=== PATIENT | male | born 1945 | race Caucasian/White ===

== ENCOUNTER 2018-04-28 15:35 | Inpatient (IN) | payer OTHER, BC ==
--- NOTE | 2018-04-28 16:03 | PDOC ---
Rapid Medical Evaluation Chief Complaint: Syncope/Near Syncope Medical Evaluation: 04/28/18 16:01 I have performed a brief in-person evaluation of this patient. The patient presents with a chief complaint of: syncopal episode yestrerday Pertinent physical exam findings: pale. , alert./ lungs clear I have ordered the following: EKG,CXR, CBC, CMP, Card profile The patient will proceed to the ED for further evaluation. 04/28/18 16:03
--- NOTE | 2018-04-28 16:59 | PDOC ---
History of Present Illness - General Chief Complaint: Syncope/Near Syncope Stated Complaint: COUGHING / WEAKNESS Time Seen by Provider: 04/28/18 16:35 - History of Present Illness Initial Comments: 04/28/18 16:53 73 yo M with h/o HCV, MVP who p/w syncope. Pt. reports acute onset of lightheadedness while in shower yesterday ( 1200 PM ) while standing. Spouse at bedside to assist in report. States that patient collapsed and she caught patient before he hit the floor. Denies LOC. Reports recent sinus congestion, green productive sputum cough, with dark tinged streaks, subjective fevers, and shortness of breath. Patient denies WILBURN, vision change, palpitations, wheezing, orthopena, PND, leg swelling/pain, N/V, F,C, urinary complaints, hematuria, BPR, abdominal pain, diarrhea, constipation, lightheadedness, weakness, sensory changes. PMHx: as noted above ROS: as noted SHx: Denies Etoh, IVDA, tobacco use Allergies: NKDA Past History - Past Medical History Allergies/Adverse Reactions: Allergies Allergy/AdvReac Type Severity Reaction Status Date / Time No Known Allergies Allergy Verified 04/28/18 15:59 - Suicide/Smoking/Psychosocial Hx Smoking History: Never smoked Hx Alcohol Use: No Drug/Substance Use Hx: No Review of Systems - Review of Systems Comments:: 04/28/18 16:59 GENERAL/CONSTITUTIONAL: No fever or chills. No weakness. HEAD, EYES, EARS, NOSE AND THROAT: No change in vision. No ear pain or discharge. No sore throat. CARDIOVASCULAR: No chest pain or shortness of breath RESPIRATORY: + cough. No wheezing, or hemoptysis. GASTROINTESTINAL: No nausea, vomiting, diarrhea or constipation. GENITOURINARY: No dysuria, frequency, or change in urination. MUSCULOSKELETAL: No joint or muscle swelling or pain. No neck or back pain. SKIN: No rash NEUROLOGIC:+ Lightheadedness. No headache, vertigo, loss of consciousness, or change in strength/sensation. ENDOCRINE: No increased thirst. No abnormal weight change HEMATOLOGIC/LYMPHATIC: No anemia, easy bleeding, or history of blood clots. ALLERGIC/IMMUNOLOGIC: No hives or skin allergy. *Physical Exam - Vital Signs Last Vital Signs Temp Pulse Resp BP Pulse Ox 98.1 F 81 18 108/76 98 03/07/19 15:59 04/28/18 15:59 04/28/18 15:59 04/28/18 15:59 04/28/18 15:59 - Physical Exam Comments: 04/28/18 17:00 GENERAL: Awake, alert, and fully oriented, in no acute distress HEAD: No signs of trauma, normocephalic, atraumatic EYES: PERRLA, EOMI, sclera anicteric, conjunctiva clear ENT: Auricles normal inspection, hearing grossly normal, nares patent, oropharynx clear without exudates. Moist mucosa NECK: Normal ROM, supple, no lymphadenopathy, JVD, or masses LUNGS: No distress, speaks full sentences, clear to auscultation bilaterally HEART: Regular rate and rhythm, normal S1 and S2, no murmurs, rubs or gallops, peripheral pulses normal and equal bilaterally. ABDOMEN: Soft, nontender, normoactive bowel sounds. No guarding, no rebound. No masses. Neg CVA ttp. EXTREMITIES :Left lateral malleolar ttp, and ankle edema/ skin discoloration.Normal inspection, Normal range of motion, no edema. No clubbing or cyanosis. NEUROLOGICAL: Cranial nerves II through XII grossly intact. Normal speech, normal gait, no focal sensorimotor deficits SKIN: Warm, Dry, normal turgor, no rashes or lesions noted Moderate Sedation - Procedure Monitoring Vital Signs: Procedure Monitoring Vital Signs Temperature 98.1 F 04/28/18 15:59 Pulse Rate 81 04/28/18 15:59 Respiratory Rate 18 04/28/18 15:59 Blood Pressure 108/76 04/28/18 15:59 O2 Sat by Pulse Oximetry (%) 98 04/28/18 15:59 ED Treatment Course - LABORATORY CBC & Chemistry Diagram: 04/28/18 17:09 04/28/18 17:00 - RADIOLOGY Radiology Studies Ordered: Category Date Time Status HEAD CT WITHOUT CONTRAST [CT] Stat CT Scan 04/28/18 16:52 Ordered Medical Decision Making - Medical Decision Making 04/28/18 16:57 73 yo M with h/o HCV, MVP who p/w syncope. Vitals wnl, AF, A&OX3. Physical exam unremarkable. Denies LOC, head trauma. + Cough, sinus congestion, subjective fevers/chills. Will consider viral URI vs. PNA. Will assess for VBI/TIA, cardiac dysarrythmias, hypoglycemia, electrolyte abnml, metabolic and toxic derangements, acid-base disturbances, infection. ED Course: 04/28/18 17:15 EKG: NSR with absent JT, STD. Normal interval duration and axis. 04/28/18 17:56 CBC, CMP: Unremarkable Trop: Neg Plan to admit tele/obs 04/28/18 19:37 ANKLE RAD: Minimally displaced, non comminuted, oblique fracture at the junction of the distal fibula, and lateral malleoulus. Paged ortho. Awaiting call back. Per Dr. Larios/Ortho, posterior splint, and f/u in office 04/28/18 19:38 Patient endorsed to medicine. Dr. Nunez Admitted to medicine *DC/Admit/Observation/Transfer Diagnosis at time of Disposition: Syncope and collapse - Discharge Dispostion Condition at time of disposition: Stable Decision to Admit order: Yes - Referrals Referrals: Glenn Mason MD [Primary Care Provider] - - Patient Instructions - Post Discharge Activity
[2018-04-28 17:21] LABS: BASO % 0.3 % (0-2.0); EOS % 0.5 % (0-4.5); HEMATOCRIT 37.6 % (35.4-49); HEMOGLOBIN 13.4 GM/dL (11.7-16.9); LYMPH % 23.7 % (8-40); MCHC 35.7 g/dl (32.0-35.9); MEAN CELL VOLUME 89.5 fl (80-96); MEAN PLT VOLUME 8.4 fl (7.5-11.1); MONO % 10.8 % (3.8-10.2); NEUT % 64.7 % (42.8-82.8); PLATELET COUNT 125 K/MM3 (134-434); RDW 12.7 % (11.9-15.9); WHITE BLOOD COUNT 3.9 K/mm3 (4.0-10.0)
[2018-04-28 17:44] LABS: INR 1.09 (0.83-1.09); PROTHROMBIN TIME (PATIENT) 12.9 SEC (9.7-13.0)
[2018-04-28 17:52] LABS: ALK PHOS 52 U/L (45-117); ANION GAP 8 MMOL/L (8-16); BILIRUBIN,TOTAL 0.4 mg/dL (0.2-1); BLOOD UREA NITROGEN 21 mg/dL (7-18); CALCIUM 8.3 mg/dL (8.5-10.1); CHLORIDE 101 mmol/L (98-107); CO2 27 mmol/L (21-32); CREATININE 1.2 mg/dL (0.55-1.3); GLUCOSE,RANDOM 112 mg/dL (74-106); POTASSIUM 4.1 mmol/L (3.5-5.1); SGOT/AST 34 U/L (15-37); SGPT/ALT 40 U/L (13-61); SODIUM 136 mmol/L (136-145); TOT PROT 7.2 g/dl (6.4-8.2)
--- NOTE | 2018-04-28 18:27 | PDOC ---
Attending Attestation - Resident Resident Name: Tristian Mcbride - [facility] HPI: The patient is a 73 year old male, with a significant PMH of mitral valve prolapse and Hepatitis C, who presents to the emergency department today s/p syncopal episode yesterday. Patient reports feeling lightheaded while taking a standing shower yesterday. His notes after he stepped out of the shower, she caught him before he fell to the floor. Patient confirms left ankle contusion and LOC, but denies head contusion. He reports feeling unusual since the episode, with increased sleeping, decreased PO intake, and slight weakness. Patient endorses a recent sinus congestion, with associated productive cough with dark green streaked sputum, subjective fever, and SOB. The patient denies chest pain and headache. Denies chills, nausea, vomit, diarrhea and constipation. Denies dysuria, frequency, urgency and hematuria. Allergies: NKA Past surgical history: None reported Social history: None reported PCP: Dr. Glenn Mason 04/28/18 18:28 - Physicial Exam PE: ADULT EXAM GENERAL: Awake, alert, and fully oriented, in no acute distress HEAD: No signs of trauma EYES: PERRLA, EOMI, sclera anicteric, conjunctiva clear ENT: Auricles normal inspection, hearing grossly normal, nares patent, oropharynx clear without exudates. Moist mucosa NECK: Normal ROM, supple, no lymphadenopathy, JVD, or masses LUNGS: Breath sounds equal, clear to auscultation bilaterally. No wheezes, and no crackles HEART: Regular rate and rhythm, normal S1 and S2, no murmurs, rubs or gallops ABDOMEN: Soft, nontender, normoactive bowel sounds. No guarding, no rebound. No masses EXTREMITIES: Normal range of motion, no edema. No clubbing or cyanosis. No cords, erythema, or tenderness NEUROLOGICAL: Cranial nerves II through XII grossly intact. Normal speech, normal gait SKIN: Warm, Dry, normal turgor, no rashes or lesions noted. 04/28/18 18:28 - Medical Decision Making EXAM#: TYPE/EXAM: RESULT: [id number] RAD/CHEST PA LAT Clinical information: Cough compared to prior chest x-ray dated 03/22/2015. Impression Limited examination, as described above. There is no evidence of acute cardiopulmonary disease. Reported By: Vanita Ybarra MD 04/28/18 18:09 EXAM#: TYPE/EXAM: RESULT: [id number] RAD/ANKLE FOOT-LEFT* Status post fall X-ray of the left foot and ankle Impression Slightly displaced fracture at the junction of the lateral malleolus and distal fibula with moderate overlying soft tissue swelling Reported By: Vanita Ybarra MD 04/28/18 19:22 Documentation prepared by TIM Stanford, acting as medical billing coordinator for Claudia Lance MD. 04/28/18 19:39 <Delisa Evans - Last Filed: 04/28/18 19:39> - Resident Resident Name: Filiberto Hernandez - Medical Decision Making 04/30/18 16:54 Pt presents to the ED complaining of syncopal episode yesterday. Denies current complaints, although he does report a recent episode of flu like illness and generalized malaise that was worse yesterday. Will check labs and admit to medicine for syncope work up. <Claudia Lance - Last Filed: 04/30/18 16:59> Heart Score/ECG Review - ECG Intrepretation Rhythm: Regular Rhythm Comment:: EKG Normal sinus rhythm. Normal ECG 04/28/18 18:29 <Delisa Evans - Last Filed: 04/28/18 19:39>
--- NOTE | 2018-04-28 20:47 | HP ---
CHIEF COMPLAINT: syncope PCP: Jaziel HISTORY OF PRESENT ILLNESS: 73 yo man c/o syncope episode on 04/27 at around 1 pm. Patient exited shower and felt lightheaded and called his who caught him as he fainted and right before he hit the floor. There was no head trauma however he twisted his left ankle. Patient was unconscious for less than one minute as per his . There was no chest pain, shortness of breath, or palpitations. He complained of left ankle pain too. Pt was reluctant to come to hospital at first. Pt reported for fevers and chills prior to syncope episode but here afebrile. Pt takes a number of herbal supplements ER course was notable for: (1) ekg (2) (3) Recent Travel: no PAST MEDICAL HISTORY: HCV- treated, mitral valve proplapse, hypothryoidism? PAST SURGICAL HISTORY: none Social History: Smoking: no Alcohol: no Drugs: former IVDA Family History: mother with leukemia Allergies No Known Allergies Allergy (Verified 04/28/18 15:59) HOME MEDICATIONS: REVIEW OF SYSTEMS CONSTITUTIONAL: Absent: , diaphoresis, generalized weakness, malaise, loss of appetite, weight change present- fever, chills HEENT: Absent: rhinorrhea, nasal congestion, throat pain, throat swelling, difficulty swallowing, mouth swelling, ear pain, eye pain, visual changes CARDIOVASCULAR: Absent: chest pain, palpitations, irregular heart rate, lightheadedness, peripheral edema present- syncope RESPIRATORY: Absent: cough, shortness of breath, dyspnea with exertion, orthopnea, wheezing, stridor, hemoptysis GASTROINTESTINAL: Absent: abdominal pain, abdominal distension, nausea, vomiting, diarrhea, constipation, melena, hematochezia GENITOURINARY: Absent: dysuria, frequency, urgency, hesitancy, hematuria, flank pain, genital pain MUSCULOSKELETAL: Absent: back pain, neck pain present- myalgia, arthralgia, joint swelling- left ankle SKIN: Absent: rash, itching, pallor HEMATOLOGIC/IMMUNOLOGIC: Absent: easy bleeding, easy bruising, lymphadenopathy, frequent infections ENDOCRINE: Absent: unexplained weight gain, unexplained weight loss, heat intolerance, cold intolerance NEUROLOGIC: Absent: headache, focal weakness or paresthesias, dizziness, unsteady gait, seizure, mental status changes, bladder or bowel incontinence PSYCHIATRIC: Absent: anxiety, depression, suicidal or homicidal ideation, hallucinations. PHYSICAL EXAMINATION Vital Signs - 24 hr 04/28/18 15:59 Temperature 98.1 F Pulse Rate 81 Respiratory 18 Rate Blood Pressure 108/76 O2 Sat by Pulse 98 Oximetry (%) GENERAL: Awake, alert, and fully oriented, in no acute distress. HEAD: Normal with no signs of trauma. EYES: Pupils equal, round and reactive to light, extraocular movements intact, sclera anicteric, conjunctiva clear. No lid lag. EARS, NOSE, THROAT: Ears normal, nares patent, oropharynx clear without exudates. Moist mucous membranes. NECK: Normal range of motion, supple without lymphadenopathy, JVD, or masses. LUNGS: Breath sounds equal, clear to auscultation bilaterally. No wheezes, and no crackles. No accessory muscle use. HEART: Regular rate and rhythm, normal S1 and S2 without murmur, rub or gallop. ABDOMEN: Soft, nontender, not distended, normoactive bowel sounds, no guarding, no rebound, no masses. No hepatomegaly or splenomegaly. MUSCULOSKELETAL: Normal range of motion at all joints. No bony deformities or tenderness. No CVA tenderness. UPPER EXTREMITIES: 2+ pulses, warm, well-perfused. No cyanosis. No clubbing. No peripheral edema. LOWER EXTREMITIES:left ankle was splinted, sensation in toes preserved, foot warm to touch NEUROLOGICAL: Cranial nerves II-XII intact. Normal speech. Normal gait. PSYCHIATRIC: Cooperative. Good eye contact. Appropriate mood and affect. SKIN: Warm, dry, normal turgor, no rashes or lesions noted, normal capillary refill. Laboratory Results - last 24 hr 04/28/18 04/28/18 04/28/18 17:00 17:09 17:09 WBC 3.9 L RBC 4.20 Hgb 13.4 Hct 37.6 MCV 89.5 MCH 32.0 MCHC 35.7 RDW 12.7 Plt Count 125 L D MPV 8.4 Absolute Neuts (auto) 2.5 Neutrophils % 64.7 Lymphocytes % 23.7 Monocytes % 10.8 H Eosinophils % 0.5 Basophils % 0.3 Nucleated RBC % 0 PT with INR 12.90 INR 1.09 Sodium 136 Potassium 4.1 Chloride 101 Carbon Dioxide 27 Anion Gap 8 BUN 21 H Creatinine 1.2 Creat Clearance w eGFR 59.51 Random Glucose 112 H Calcium 8.3 L Total Bilirubin 0.4 AST 34 ALT 40 Alkaline Phosphatase 52 Creatine Kinase 312 H Troponin I < 0.02 Total Protein 7.2 Albumin 4.0 Imaging studies reviewed - left ankle xray + for displaced fracture of left lateral malleollus and distal fibula fx ekg with nsr ASSESSMENT/PLAN: #SYcnope ad collapse- likely vasovagal vs orthostatic. EKG wnl and trop were negative. Do not suspect seizures. -observation -cardiac monitoring -check orthostatics -trend troponins -echo to r/o -IV fluid hydration #Left lateral malleolus fracture, distal fibula fx - Dr. Larios called from ER and case discussed. Feeling in toes of left foot is preserved. -s/p immobilization of left foot -orthopedics consults -morphine IV prn if pain -bed rest -fall precautions #Hypothyrodism -c/w home dose levothyroxine -check tsh #DVT ppx -heparin sc Visit type - Emergency Visit Emergency Visit: Yes ED Registration Date: 04/28/18 Care time: The patient presented to the Emergency Department on the above date and was hospitalized for further evaluation of their emergent condition. - New Patient This patient is new to me today: Yes Date on this admission: 04/28/18 - Critical Care Critical Care patient: No
[2018-04-28] MEDS ORDERED: MORPHINE SULFATE 2 MG/ML VIAL IVPUSH PRN (22:49)
[2018-04-28] MEDS: SODIUM CHLORIDE 1,000 ML IV SCH (23:16)
[2018-04-28] MEDS: HEPARIN NA (PORCINE) 5,000 UNITS/ML 1ML VIAL SQ SCH (23:17)
[2018-04-29 01:05] VITALS: BMI 25.9
[2018-04-29] MEDS: LEVOTHYROXINE NA 125 MCG TABLET (FP) PO SCH (06:15)
[2018-04-29] MEDS: SODIUM CHLORIDE 1,000 ML IV SCH (06:51)
[2018-04-29 07:01] LABS: HEMOGLOBIN 13.3 GM/dL (11.7-16.9); MCH 32.1 pg (25.7-33.7); MEAN CELL VOLUME 89.2 fl (80-96); PLATELET COUNT 106 K/MM3 (134-434); RBC 4.15 M/mm3 (4.00-5.60); RDW 12.4 % (11.9-15.9)
[2018-04-29 08:10] LABS: ANION GAP 10 MMOL/L (8-16); BLOOD UREA NITROGEN 16 mg/dL (7-18); CALCIUM 8.2 mg/dL (8.5-10.1); CHLORIDE 102 mmol/L (98-107); CO2 26 mmol/L (21-32); CREATININE 0.9 mg/dL (0.55-1.3); GLUCOSE,RANDOM 99 mg/dL (74-106); POTASSIUM 4.2 mmol/L (3.5-5.1); SODIUM 139 mmol/L (136-145)
[2018-04-29] MEDS: HEPARIN NA (PORCINE) 5,000 UNITS/ML 1ML VIAL SQ SCH ×2 (09:58→22:44)
--- NOTE | 2018-04-29 11:20 | PN ---
Progress Note, Physician Chief Complaint: patient seen and examined has temp of 102 - Current Medication List Current Medications: Active Medications Acetaminophen (Tylenol -) 650 mg PO Q6H PRN PRN Reason: FEVER Heparin Sodium (Porcine) (Heparin -) 5,000 unit SQ BID [facility] Last Admin: 04/29/18 09:58 Dose: 5,000 unit Sodium Chloride (Normal Saline -) 1,000 mls @ 75 mls/hr IV ASDIR [facility] Last Admin: 04/28/18 23:16 Dose: 75 mls/hr Levothyroxine Sodium (Synthroid -) 125 mcg PO DAILY@0700 [facility] Last Admin: 04/29/18 06:15 Dose: 125 mcg Morphine Sulfate (Morphine Sulfate) 2 mg IVPUSH Q4H PRN PRN Reason: PAIN LEVEL 6-10 - Objective Vital Signs: Vital Signs Temperature 102.0 F H 04/29/18 10:55 Pulse Rate 85 04/29/18 09:57 Respiratory Rate 16 04/29/18 09:57 Blood Pressure 154/75 04/29/18 09:57 O2 Sat by Pulse Oximetry (%) 98 04/28/18 23:45 Constitutional: Yes: Calm Cardiovascular: Yes: Regular Rate and Rhythm, S1, S2 Respiratory: Yes: CTA Bilaterally Gastrointestinal: Yes: Normal Bowel Sounds, Soft Extremities: Yes: Other (left ankle cast) Neurological: Yes: Alert, Oriented Labs: CBC, BMP 04/29/18 05:30 04/29/18 05:30 INR, PTT INR 1.09 (0.83-1.09) 04/28/18 17:09 Problem List - Problems (1) Syncope and collapse Assessment/Plan: telemetry carotid doppler echo cardiology troponin b12, level neurology Code(s): R55 - SYNCOPE AND COLLAPSE (2) Fever Assessment/Plan: ordered blood cultures,UA and urine culture tylenol ID eval Code(s): R50.9 - FEVER, UNSPECIFIED
[2018-04-29] MEDS: ACETAMINOPHEN 325 MG TABLET (FP) PO PRN (11:23)
--- NOTE | 2018-04-29 12:19 | PN ---
Progress Note (short form) - Note Progress Note: PULMONARY CONSULTATION DICTATED 04/29/18 IMP SYNCOPE ? SECONDARY URI URI ? INFLUENZA MVP H/O HEP C HYPOTHYROID LEFT ANKLE FX PLAN CULTURES ABX FLU SCREEN INHALED BRONCHODILATORS ECHO CARDIOLOGY EVALUATION ORTHO EVALUATION DR GARCIA Problem List - Problems (1) Fever Code(s): R50.9 - FEVER, UNSPECIFIED (2) Syncope and collapse Code(s): R55 - SYNCOPE AND COLLAPSE (3) Hepatitis C Code(s): B19.20 - UNSPECIFIED VIRAL HEPATITIS C WITHOUT HEPATIC COMA (4) Hypothyroid Code(s): E03.9 - HYPOTHYROIDISM, UNSPECIFIED
[2018-04-29] MEDS ORDERED: ALBUTEROL SO4 2.5/IPRATROPIUM 0.5 INH SOL 3 ML VIAL.NEB. NEB PRN (12:29)
[2018-04-29 12:43] LABS: URINE APPEARANCE CLEAR; URINE BILIRUBIN NEGATIVE (<2.0 mg/dL); URINE COLOR YELLOW; URINE GLUCOSE (UA) NEGATIVE (NEGATIVE); URINE KETONE NEGATIVE (NEGATIVE); URINE LEUK ESTERASE NEGATIVE (NEGATIVE); URINE NITRITE NEGATIVE (NEGATIVE); URINE PROTEIN NEGATIVE (NEGATIVE); URINE UROBILINOGEN NEGATIVE mg/dL (0.2-1.0)
--- NOTE | 2018-04-29 13:26 | ECHO ---
Name: LILLIAN HUANG Exam:Adult Echocardiogram Study Date: 04/29/2018 10:51 AM Age: 73 yrs Reason For Study: SYNCOPE Height: 74 in Weight: 200 lb BSA: 2.2 m2 MMode/2D Measurements & Calculations LVIDd: 4.5 cm Ao root diam: 3.2 cm LVIDs: 2.9 cm LA dimension: 2.7 cm EDV(Teich): 94.2 ml LVOT diam: 2.1 cm ESV(Teich): 32.8 ml Doppler Measurements & Calculations MV E max river: 56.8 cm/sec Ao V2 max: 183.5 cm/sec MV A max river: 90.8 cm/sec Ao max P.5 mmHg MV E/A: 0.63 Ao V2 mean: 130.9 cm/sec Ao mean P.8 mmHg Ao V2 VTI: 32.3 cm GALA(I,D): 3.1 cm2 GALA(V,D): 3.1 cm2 LV V1 max P.4 mmHg SV(LVOT): 100.4 ml LV V1 mean P.6 mmHg LV V1 max: 169.1 cm/sec LV V1 mean: 107.0 cm/sec LV V1 VTI: 29.8 cm Med [place]: 8.3 cm/sec Med E/e': 6.9 Lat [place]: 10.3 cm/sec Lat E/e': 5.5 Procedure The study was technically difficult with many images being suboptimal in quality. Left Ventricle The left ventricle is hyperdynamic. Ejection Fraction = 65-70%. The transmitral spectral Doppler flow pattern is suggestive of impaired LV relaxation. Right Ventricle The right ventricle is not well visualized. Atria Normal left and right atrial size and function. Mitral Valve The mitral valve is normal in structure and function. There is no mitral valve stenosis. There is mil d mitral regurgitation. Tricuspid Valve The tricuspid valve is normal in structure and function. There is mild tricuspid regurgitation. Aortic Valve The aortic valve opens well. No hemodynamically significant valvular aortic stenosis. No aortic regur gitation is present. Pulmonic Valve The pulmonic valve is not well seen, but is grossly normal. There is no pulmonic valvular stenosis. T here is no pulmonic valvular regurgitation. Great Vessels The aortic root is normal size. Pericardium/Pleura Due to the poor quality of the echocardiogram, a pericardial effusion cannot be excluded. Interpretation Summary The left ventricle is hyperdynamic. Ejection Fraction = 65-70%. The transmitral spectral Doppler flow pattern is suggestive of impaired LV relaxation. The right ventricle is not well visualized. There is mild mitral regurgitation. There is mild tricuspid regurgitation. Due to the poor quality of the echocardiogram, a pericardial effusion cannot be excluded. MD Burk *Jan 04/29/2018 01:25 PM
[2018-04-29] MEDS: OSELTAMIVIR PHOSPHATE 75 MG CAPSULE PO SCH ×2 (13:27→22:44)
[2018-04-29 13:44] LABS: CHOLESTEROL 139 mg/dL (50-200); HDL CHOLESTEROL 52 mg/dL (40-60); TRIGLYCERIDES 87 mg/dL (0-150)
--- NOTE | 2018-04-29 14:02 | CONS ---
PULMONARY CONSULTATION DATE OF CONSULTATION: 04/29/2018 REFERRING PHYSICIAN: Dr. Mayo HISTORY OF PRESENT ILLNESS: The patient is a 73-year-old white male with a past medical of hepatitis C treated in , hypothyroidism, mitral valve prolapse, admitted to [facility] on April 28, status post syncopal episode. The patient states that since last Wednesday, he started developing low-grade temps of 99 to 100 over the course of the week. He felt weakness, and cough productive of yellowish sputum. He denied any chest pain, nausea, vomiting or diaphoresis. He states that he has been feeling generalized arthralgias and weakness. On the day prior to admission, when he exited the shower, he felt lightheaded; he fainted and lost consciousness for less than a minute. He denied any nausea, vomiting or diaphoresis prior to this. There was no chest pain, no shortness of breath prior to event. He also complained of left ankle pain. Initially, he did not go to the hospital until the following day when he presented to the ER. In the ER, he was noted to have a left malleolar fracture. He was transferred to telemetry unit for further monitoring. Patient's course of hospitalization was noted to have spiked a fever earlier today of 102. He denies any history of recent travel. There is no history of occupational exposure to chemicals or fumes. He states that he received the flu shot. PAST MEDICAL HISTORY: Again, includes hypothyroidism, history of hepatitis C. SOCIAL HISTORY: Nonsmoker. No occupational exposures. REVIEW OF SYSTEMS: Positive cough. Positive chest congestion. Positive fever. No chills. No hemoptysis. Positive generalized arthralgias and weakness. Positive syncopal episode. Positive left ankle pain. CURRENT MEDICATIONS: Include heparin subcutaneous, morphine, and Synthroid. PHYSICAL EXAMINATION: General: The patient is a well-developed, well-nourished male, awake, alert. He is in no acute distress. Vital Signs: His temp is 102, blood pressure 154/75, respiratory rate is 16, O2 saturation 98% on room air. HEENT: Exam is normocephalic, atraumatic. Neck: Supple. Heart: Regular S1 and S2. Chest: A few scattered bilateral rhonchi, left greater than right. Abdomen: Soft. Bowel sounds are positive. Extremities: no edema left lower extremity soft cast. LABORATORY DATA: WBC is 4, hemoglobin 13.3, hematocrit 37, platelet count of 106,000. INR is 1.09. BUN 16, creatinine 0.9. IMAGING: Chest x-ray: No infiltrates and no effusions. Ankle x-ray reveals a slight displaced fracture at the junction of the lateral malleolus and distal fibula, moderate overlying soft tissue swelling. IMPRESSION: 1. Syncopal episode, etiology to be determined. Likely secondary to an upper respiratory infection, possible viral syndrome, possible influenza. 2. Rule out possible cardiac. 3. History of mitral valve prolapse. 4. History of hepatitis C. 5. Hypothyroidism. 6. Left ankle fracture, status post mechanical fall. PLAN: Cultures. Antibiotics. Flu screen. Obtain echo. Cardiology evaluation. Orthopedics consultation. Inhaled bronchodilators. LILLIAN GARCIA M.D. [id number] MTDD
--- NOTE | 2018-04-29 14:25 | EKG ---
Test Reason : Blood Pressure : / mmHG Vent. Rate : 064 BPM Atrial Rate : 064 BPM P-R Int : 194 ms QRS Dur : 092 ms QT Int : 404 ms P-R-T Axes : 054 006 043 degrees QTc Int : 416 ms NORMAL SINUS RHYTHM EARLY REPOLARIZATION WHEN COMPARED WITH ECG OF 22-MAR-2015 10:31, NO SIGNIFICANT CHANGE WAS FOUND Confirmed by ROLANDO BANUELOS MD ([id number]) on 04/29/2018 2:25:37 PM Referred By: Confirmed By:ROLANDO BANUELOS MD
--- NOTE | 2018-04-29 14:34 | PN ---
Progress Note (short form) - Note Progress Note: Microbiology 04/29/18 12:05 Urine For Antigen Detection Legionella Antigen - Final 04/29/18 12:05 Urine For Antigen Detection Streptococcus pneumoniae Antigen (M - Final started on rocephin ct chest ordered ID aware on antolin flu awaiting flu swab Problem List - Problems (1) Syncope and collapse Code(s): R55 - SYNCOPE AND COLLAPSE (2) Fever Code(s): R50.9 - FEVER, UNSPECIFIED
[2018-04-29] MEDS ORDERED: cefTRIAXone SODIUM 1 GM VIAL ONE (15:31)
[2018-04-29] MEDS ORDERED: DEXTROSE 5%-WATER - 50 ML IVPB ONE (15:32)
[2018-04-29] MEDS: CEFTRIAXONE 1 GM in DEXTROSE 5%-WATER - 50 ML IVPB SCH (15:33)
--- NOTE | 2018-04-29 15:44 | CON.CARD ---
Consult Consult Specialty:: Cardiology Reason for Consultation:: Syncope - History of Present Illness Chief Complaint: Syncope and fevers History of Present Illness: This is a 73 year old male with a PMH of treated HCV and mitral valve prolapse diagnosed years ago. He was experiencing subjective fevers for several days associated with sinus congestion, and a productive cough of green sputum. About 1 pm on 04/27/18 he was taking a shower and felt light headed, called his , and has LOC where his helped him to the floor and avoid hitting his head. EKG NSR with normal intervals, normal axis, and NSSTTW changes. Echocardiogram 04/29/18 Normal LV function, EF 65 - 70%, mild MR, Mild TR. Troponin negative Flu negative - Alcohol/Substance Use Hx Alcohol Use: No - Smoking History Smoking history: Never smoked Home Medications - Allergies Allergies/Adverse Reactions: Allergies Allergy/AdvReac Type Severity Reaction Status Date / Time No Known Allergies Allergy Verified 04/28/18 15:59 - Home Medications Home Medications: Ambulatory Orders Levothyroxine [Synthroid -] 125 mcg PO DAILY 04/28/18 Vital Signs: Vital Signs Temperature 99.5 F 04/29/18 15:32 Pulse Rate 71 04/29/18 15:32 Respiratory Rate 18 04/29/18 15:32 Blood Pressure 103/56 L 04/29/18 15:32 O2 Sat by Pulse Oximetry (%) 98 04/29/18 07:00 Constitutional: Yes: Well Nourished Eyes: Yes: WNL HENT: Yes: WNL Neck: Yes: WNL Respiratory: Yes: CTA Bilaterally Gastrointestinal: Yes: Soft Cardiovascular: Yes: Regular Rate and Rhythm (NL S1S2, no MRHG) Extremities: Yes: WNL Neurological: Yes: Alert, Oriented - Other Data Labs, Other Data: CBC, BMP 04/29/18 05:30 04/29/18 05:30 INR, PTT INR 1.09 (0.83-1.09) 04/28/18 17:09 Troponin, BNP 04/28/18 04/28/18 04/29/18 17:00 22:00 11:55 Troponin I < 0.02 < 0.02 < 0.02 Troponin, BNP 04/28/18 04/28/18 04/29/18 17:00 22:00 11:55 Troponin I < 0.02 < 0.02 < 0.02 Assessment/Plan 73 year old male with a PMH of treated HCV and mitral valve prolapse diagnosed years ago. He was experiencing subjective fevers for several days associated with sinus congestion, and a productive cough of green sputum. About 1 pm on 04/27 he was taking a shower and felt light headed, called his , and has LOC where his helped him to the floor and avoid hitting his head. EKG NSR with normal intervals, normal axis, and NSSTTW changes. Echocardiogram 04/29/18 Normal LV function, EF 65 - 70%, mild MR, Mild TR. Troponin negative Flu negative Syncope secondary to a febrile illness Keep well hydrated No further inpatient cardiac testing required Call prn
[2018-04-29] MEDS ORDERED: PT OWN MED DRAWER 7, Y5N ONE (22:34)
--- NOTE | 2018-04-29 22:40 | CONS ---
DATE OF CONSULTATION: DATE OF DICTATION: 04/29/2018 INFECTIOUS DISEASE CONSULTATION HISTORY OF PRESENT ILLNESS: The patient is a 73-year-old male evaluated for pneumonia. The patient reports being well until the day of admission. He had a syncopal episode while showering. He lost consciousness briefly without sustaining head trauma. He did however twist his ankle, resulting in a fracture of his left distal tibia. He was admitted to the hospital where chest x-ray showed no acute infiltrate. Patient states that he had not been feeling well since April 24. 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 He developed a cough productive of yellowish sputum. He was evaluated at [facility] where he was admitted with suspected respiratory tract illness. An influenza swab was performed and was negative. He was started on Tamiflu. Pneumococcal antigen now reported positive. He continues to have cough productive of yellowish sputum. He denies any hemoptysis, no complaints of chest pain or dyspnea. He has been febrile on admission. He denies any ill contacts, however does volunteer at a nursing facility. He is a nonsmoker. No recent travel, lives at home with his who is not ill. No recent hospitalizations. 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 Mitral valve prolapse. Hypothyroidism. ALLERGIES: No known allergies. SOCIAL HISTORY: Lives at home with his significant other. Former injection drug user, reports testing HIV negative in the past, however he is agreeable to retesting. No active tobacco, alcohol, or illicit drug use. SYSTEMS REVIEW: Neurologic: As per HPI. Cardiac: Negative for chest pain or palpitations. Respiratory: As per HPI. Gastrointestinal: Negative vomiting or diarrhea. Genitourinary: Negative for urinary tract infection. LABORATORY DATA: White count 3.9, 64 neutrophils, 23 lymphocytes, 10 monocytes. Hematocrit 37.6, platelets 125. PHYSICAL EXAMINATION: General: On exam, he is awake and alert, he is not acutely toxic appearing, in no acute distress. Vital signs: T-max 102, blood pressure 154/72, pulse 85 regular, respirations 16 per minute. HEENT: Sclerae anicteric. Cardiovascular: Heart sounds S1, S2. Lungs: Crepitations left base. Abdomen: Soft, no tenderness elicited. No mass, rebound, or rigidity. Extremities: Negative for edema. IMPRESSION: 1. Probable pneumococcal pneumonia. 2. Rule out sepsis secondary to pneumonia . 3. Rule out recent viral respiratory tract infection. Clinical presentation along with leukopenia, monocytosis, and thrombocytopenia suggestive of viral illness; however, pneumococcal antigen in the urine is positive. Await culture results. Continue ceftriaxone for treatment of presumed pneumococcal pneumonia. Will continue Tamiflu despite negative influenza swab. Obtain CAT scan of the chest, sputum culture, case discussed with patient's present at the time of the examination. Thank you for the kind referral. ROLANDO WEBBER M.D. [id number]
[2018-04-30] MEDS: LEVOTHYROXINE NA 125 MCG TABLET (FP) PO SCH (07:37)
[2018-04-30] MEDS ORDERED: cefTRIAXone SODIUM 1 GM VIAL ONE (09:17)
[2018-04-30] MEDS ORDERED: DEXTROSE 5%-WATER - 50 ML IVPB ONE (09:17)
--- NOTE | 2018-04-30 09:54 | PN ---
Progress Note (short form) - Note Progress Note: X-rays reviewed. Pt was in CT scan when I came to see him. Spoke with his . Fracture appears nondisplaced at this time. Pt can start PT when medically clear and start NWB with walker. No need for surgery at this time. Will come by tomorrow for full exam.
--- NOTE | 2018-04-30 09:57 | PN ---
Progress Note, Physician History of Present Illness: pulmonary alert,no distress,+ cough, chets ct + derian lower infiltrates/atelectasis. pneumococcal antigen +,started on ceftriaxone by ID - Current Medication List Current Medications: Active Medications Acetaminophen (Tylenol -) 650 mg PO Q6H PRN PRN Reason: FEVER Last Admin: 04/29/18 11:23 Dose: 650 mg Albuterol/Ipratropium (Duoneb -) 1 amp NEB Q4H PRN PRN Reason: SHORTNESS OF BREATH Heparin Sodium (Porcine) (Heparin -) 5,000 unit SQ BID [facility] Last Admin: 04/29/18 22:44 Dose: 5,000 unit Sodium Chloride (Normal Saline -) 1,000 mls @ 75 mls/hr IV ASDIR [facility] Last Admin: 04/29/18 06:51 Dose: 75 mls/hr Ceftriaxone Sodium 1 gm/ (Dextrose) 50 mls @ 100 mls/hr IVPB DAILY [facility]; Protocol Last Admin: 04/29/18 15:33 Dose: 100 mls/hr Levothyroxine Sodium (Synthroid -) 125 mcg PO DAILY@0700 [facility] Last Admin: 04/30/18 07:37 Dose: Not Given Morphine Sulfate (Morphine Sulfate) 2 mg IVPUSH Q4H PRN PRN Reason: PAIN LEVEL 6-10 Oseltamivir Phosphate (Tamiflu -) 75 mg PO BID [facility] Stop: 05/04/18 12:44 Last Admin: 04/29/18 22:44 Dose: 75 mg - Objective Vital Signs: Vital Signs Temperature 97.9 F 04/30/18 05:18 Pulse Rate 64 04/30/18 05:18 Respiratory Rate 16 04/30/18 08:10 Blood Pressure 117/58 L 04/30/18 05:18 O2 Sat by Pulse Oximetry (%) 98 04/30/18 08:10 Constitutional: Yes: Well Nourished, Calm Eyes: Yes: WNL HENT: Yes: WNL Neck: Yes: WNL Cardiovascular: Yes: Regular Rate and Rhythm, S1, S2 Respiratory: Yes: Rhonchi (BILATERAL RHONCHI) Gastrointestinal: Yes: Normal Bowel Sounds, Soft Extremities: Yes: Other (LEFT LEG IN SOFT CAST) Edema: No Labs: CBC, BMP - ....Imaging Cat Scan: Report Reviewed, Image Reviewed Problem List - Problems (1) Fever Code(s): R50.9 - FEVER, UNSPECIFIED (2) Syncope and collapse Code(s): R55 - SYNCOPE AND COLLAPSE (3) Hepatitis C Code(s): B19.20 - UNSPECIFIED VIRAL HEPATITIS C WITHOUT HEPATIC COMA (4) Hypothyroid Code(s): E03.9 - HYPOTHYROIDISM, UNSPECIFIED Assessment/Plan IMP SYNCOPE LIKELY SECONDARY TO PNEUMONIA BILATERAL PNEUMONIA MVP H/O HEP C HYPOTHYROID LEFT ANKLE FX PLAN O2 NEEDED ABX PER ID INHALED BRONCHODILATORS ORTHO F/U DR GARCIA Problem List - Problems (1) Fever Code(s): R50.9 - FEVER, UNSPECIFIED (2) Syncope and collapse Code(s): R55 - SYNCOPE AND COLLAPSE (3) Hepatitis C Code(s): B19.20 - UNSPECIFIED VIRAL HEPATITIS C WITHOUT HEPATIC COMA (4) Hypothyroid Code(s): E03.9 - HYPOTHYROIDISM, UNSPECIFIED
[2018-04-30] MEDS ORDERED: ALBUTEROL SO4 0.083% IH SOL 2.5 MG/3 ML VIAL.NEB. NEB PRN (09:58)
[2018-04-30] MEDS: CEFTRIAXONE 1 GM in DEXTROSE 5%-WATER - 50 ML IVPB SCH (10:34)
[2018-04-30] MEDS: HEPARIN NA (PORCINE) 5,000 UNITS/ML 1ML VIAL SQ SCH ×2 (10:35→21:09)
[2018-04-30] MEDS: OSELTAMIVIR PHOSPHATE 75 MG CAPSULE PO SCH ×2 (10:35→21:16)
--- NOTE | 2018-04-30 10:39 | CONSULT ---
Consult - text type - Consultation Consultation Note: HISTORY OF PRESENT ILLNESS: Asked to eval this 73M admitted after syncopal episode on 04/27. Patient exited shower and felt lightheaded and called his who caught him as he fainted and right before he hit the floor. There was no head trauma however he twisted his left ankle. Patient was unconscious for less than one minute as per his . Xray showed left ankle fracture. Patient reports minimal ankle pain, even with standing. PAST MEDICAL HISTORY: HCV- treated, mitral valve proplapse, hypothryoidism PAST SURGICAL HISTORY: none Social History: Smoking: no Alcohol: no Drugs: former IVDA Family History: mother with leukemia Allergies No Known Allergies Allergy PE: aOX3, NAD, Walking in splint follows commands without difficulty, breathing comfortably b/l ue from all joints without pain left ankle exam, mild lateral fibula tenderness, no medial sided tenderness, Achilles intact no skin lesions B/L hip ROM without pain Motor intact b/l LE, SLR exam negative, DP 2+ XRAYS: Left fibula fx, oblique, Garcia B, nodisplaced ankle mortise. IMP: Minimally displaced left fibula fracture with anatomic ankle mortise, no medial tenderness and minimal discomfort with PWB -discussed options with patient including cast/nwb versus very PWB in camboot - with camboot, there would be slightly higher risk of fracture displacement, possibly necessitating fixation in the next 1-3 weeks. -patient would prefer camboot - I think very reasonable given xrays and exam -TTWB with crutches and camboot - PT eval ordered. -Long CAM Walker boot ordered. -f/u in office for xray in 1 week as outpatient
--- NOTE | 2018-04-30 11:22 | PN ---
Progress Note, Physician - Current Medication List Current Medications: Active Medications Acetaminophen (Tylenol -) 650 mg PO Q6H PRN PRN Reason: FEVER Last Admin: 04/29/18 11:23 Dose: 650 mg Albuterol Sulfate (Ventolin 0.083% Nebulizer Soln -) 1 amp NEB Q4H PRN PRN Reason: SHORT OF BREATH/WHEEZING Albuterol/Ipratropium (Duoneb -) 1 amp NEB RQID [facility] Heparin Sodium (Porcine) (Heparin -) 5,000 unit SQ BID [facility] Last Admin: 04/30/18 10:35 Dose: 5,000 unit Sodium Chloride (Normal Saline -) 1,000 mls @ 75 mls/hr IV ASDIR [facility] Last Admin: 04/29/18 06:51 Dose: 75 mls/hr Ceftriaxone Sodium 1 gm/ (Dextrose) 50 mls @ 100 mls/hr IVPB DAILY [facility]; Protocol Last Admin: 04/30/18 10:34 Dose: 100 mls/hr Levothyroxine Sodium (Synthroid -) 125 mcg PO DAILY@0700 [facility] Last Admin: 04/30/18 07:37 Dose: Not Given Morphine Sulfate (Morphine Sulfate) 2 mg IVPUSH Q4H PRN PRN Reason: PAIN LEVEL 6-10 Oseltamivir Phosphate (Tamiflu -) 75 mg PO BID [facility] Stop: 05/04/18 12:44 Last Admin: 04/30/18 10:35 Dose: 75 mg - Objective Vital Signs: Vital Signs Temperature 98.6 F 04/30/18 10:33 Pulse Rate 64 04/30/18 10:33 Respiratory Rate 18 04/30/18 10:33 Blood Pressure 123/73 04/30/18 10:33 O2 Sat by Pulse Oximetry (%) 98 04/30/18 08:10 Cardiovascular: Yes: S1, S2 Respiratory: Yes: Diminished, Rhonchi Gastrointestinal: Yes: Normal Bowel Sounds, Soft Labs: CBC, BMP 04/29/18 05:30 04/29/18 05:30 INR, PTT INR 1.09 (0.83-1.09) 04/28/18 17:09 Problem List - Problems (1) Pneumonia due to Streptococcus pneumoniae Assessment/Plan: -IV ABX -ID AND PULM ON BOARD -FOLLOW UP CXR Code(s): J13 - PNEUMONIA DUE TO STREPTOCOCCUS PNEUMONIAE (2) Ankle fracture Assessment/Plan: ORTHO CONSULT NOTED BOOT PT Code(s): S82.899A - OTH FRACTURE OF UNSP LOWER LEG, INIT FOR CLOS FX (3) Syncope and collapse Assessment/Plan: MAY HAVE JENA DUE TO PNEUMONIA TELE CARIO Code(s): R55 - SYNCOPE AND COLLAPSE
[2018-04-30] MEDS: ALBUTEROL SO4 2.5/IPRATROPIUM 0.5 INH SOL 3 ML VIAL.NEB. NEB SCH ×3 (12:17→20:47)
--- NOTE | 2018-04-30 13:29 | PN ---
Progress Note, Physician History of Present Illness: TEMP ELEVATION PAST 24H REPORTS COUGH, YELLOW SP NO C/O CHEST PAIN/ DYSPNEA CT SHOWS BIBASILAR INFILTRATES C/S PENDING - Current Medication List Current Medications: Active Medications Acetaminophen (Tylenol -) 650 mg PO Q6H PRN PRN Reason: FEVER Last Admin: 04/29/18 11:23 Dose: 650 mg Albuterol Sulfate (Ventolin 0.083% Nebulizer Soln -) 1 amp NEB Q4H PRN PRN Reason: SHORT OF BREATH/WHEEZING Albuterol/Ipratropium (Duoneb -) 1 amp NEB RQID [facility] Last Admin: 04/30/18 12:17 Dose: 1 amp Heparin Sodium (Porcine) (Heparin -) 5,000 unit SQ BID [facility] Last Admin: 04/30/18 10:35 Dose: 5,000 unit Ceftriaxone Sodium 1 gm/ (Dextrose) 50 mls @ 100 mls/hr IVPB DAILY [facility]; Protocol Last Admin: 04/30/18 10:34 Dose: 100 mls/hr Levothyroxine Sodium (Synthroid -) 125 mcg PO DAILY@0700 [facility] Last Admin: 04/30/18 07:37 Dose: Not Given Morphine Sulfate (Morphine Sulfate) 2 mg IVPUSH Q4H PRN PRN Reason: PAIN LEVEL 6-10 Oseltamivir Phosphate (Tamiflu -) 75 mg PO BID [facility] Stop: 05/04/18 12:44 Last Admin: 04/30/18 10:35 Dose: 75 mg - Objective Vital Signs: Vital Signs Temperature 99.4 F 04/30/18 13:12 Pulse Rate 73 04/30/18 13:12 Respiratory Rate 16 04/30/18 13:12 Blood Pressure 116/63 04/30/18 13:12 O2 Sat by Pulse Oximetry (%) 98 04/30/18 08:10 Constitutional: Yes: No Distress Eyes: Yes: Conjunctiva Clear Cardiovascular: Yes: Regular Rate and Rhythm, S1, S2 Respiratory: Yes: Other (+ CREPITATIONS, BASES BILATERALLY) Gastrointestinal: Yes: Normal Bowel Sounds, Soft. No: Tenderness Extremities: Yes: Other (L LE SPLINTED) Labs: CBC, BMP 04/29/18 05:30 04/29/18 05:30 INR, PTT INR 1.09 (0.83-1.09) 04/28/18 17:09 Assessment/Plan BIBASILAR INFILTRATES + PNEUMOCOCCAL AG L ANKLE FRACTURE CONTINUE CEFTRIAXONE
[2018-04-30] MEDS: ACETAMINOPHEN 325 MG TABLET (FP) PO PRN (13:44)
[2018-04-30 14:28] LABS: BASO % 0.2 % (0-2.0); EOS % 0.2 % (0-4.5); HEMATOCRIT 34.8 % (35.4-49); HEMOGLOBIN 12.5 GM/dL (11.7-16.9); LYMPH % 13.4 % (8-40); MCH 32.2 pg (25.7-33.7); MEAN CELL VOLUME 89.5 fl (80-96); MEAN PLT VOLUME 8.3 fl (7.5-11.1); MONO % 5.3 % (3.8-10.2); NEUT % 80.9 % (42.8-82.8); PLATELET COUNT 132 K/MM3 (134-434); RBC 3.89 M/mm3 (4.00-5.60); RDW 12.5 % (11.9-15.9); WHITE BLOOD COUNT 6.1 K/mm3 (4.0-10.0)
[2018-05-01] MEDS: LEVOTHYROXINE NA 125 MCG TABLET (FP) PO SCH (06:43)
[2018-05-01 07:25] LABS: BASO % 0.4 % (0-2.0); EOS % 0.9 % (0-4.5); HEMATOCRIT 35.3 % (35.4-49); HEMOGLOBIN 12.7 GM/dL (11.7-16.9); LYMPH % 19.7 % (8-40); MCH 32.1 pg (25.7-33.7); MEAN CELL VOLUME 89.3 fl (80-96); MEAN PLT VOLUME 8.7 fl (7.5-11.1); MONO % 5.2 % (3.8-10.2); NEUT % 73.8 % (42.8-82.8); PLATELET COUNT 138 K/MM3 (134-434); RBC 3.95 M/mm3 (4.00-5.60); RDW 12.4 % (11.9-15.9); WHITE BLOOD COUNT 5.5 K/mm3 (4.0-10.0)
[2018-05-01 07:31] LABS: ALBUMIN 3.4 g/dl (3.4-5.0); ALK PHOS 49 U/L (45-117); ANION GAP 6 MMOL/L (8-16); BILIRUBIN,TOTAL 0.5 mg/dL (0.2-1); BLOOD UREA NITROGEN 14 mg/dL (7-18); CHLORIDE 105 mmol/L (98-107); CO2 27 mmol/L (21-32); CREATININE 0.9 mg/dL (0.55-1.3); GLUCOSE,RANDOM 91 mg/dL (74-106); SGOT/AST 17 U/L (15-37); SGPT/ALT 41 U/L (13-61); SODIUM 138 mmol/L (136-145); TOT PROT 6.8 g/dl (6.4-8.2)
[2018-05-01] MEDS: ALBUTEROL SO4 2.5/IPRATROPIUM 0.5 INH SOL 3 ML VIAL.NEB. NEB SCH ×4 (08:15→19:47)
[2018-05-01] MEDS ORDERED: DEXTROSE 5%-WATER - 50 ML IVPB ONE (09:07)
[2018-05-01] MEDS ORDERED: cefTRIAXone SODIUM 1 GM VIAL ONE (09:07)
[2018-05-01] MEDS: HEPARIN NA (PORCINE) 5,000 UNITS/ML 1ML VIAL SQ SCH ×2 (10:14→21:53)
[2018-05-01] MEDS: CEFTRIAXONE 1 GM in DEXTROSE 5%-WATER - 50 ML IVPB SCH (10:14)
[2018-05-01] MEDS: OSELTAMIVIR PHOSPHATE 75 MG CAPSULE PO SCH ×2 (10:15→21:53)
--- NOTE | 2018-05-01 10:48 | PN ---
Progress Note, Physician History of Present Illness: PULMONARY ALERT,FEELING BETTER,LESS COUGH - Current Medication List Current Medications: Active Medications Acetaminophen (Tylenol -) 650 mg PO Q6H PRN PRN Reason: FEVER Last Admin: 04/30/18 13:44 Dose: 650 mg Albuterol Sulfate (Ventolin 0.083% Nebulizer Soln -) 1 amp NEB Q4H PRN PRN Reason: SHORT OF BREATH/WHEEZING Albuterol/Ipratropium (Duoneb -) 1 amp NEB RQID [facility] Last Admin: 05/01/18 08:15 Dose: 1 amp Heparin Sodium (Porcine) (Heparin -) 5,000 unit SQ BID [facility] Last Admin: 05/01/18 10:14 Dose: 5,000 unit Ceftriaxone Sodium 1 gm/ (Dextrose) 50 mls @ 100 mls/hr IVPB DAILY [facility]; Protocol Last Admin: 05/01/18 10:14 Dose: 100 mls/hr Levothyroxine Sodium (Synthroid -) 125 mcg PO DAILY@0700 [facility] Last Admin: 05/01/18 06:43 Dose: 125 mcg Morphine Sulfate (Morphine Sulfate) 2 mg IVPUSH Q4H PRN PRN Reason: PAIN LEVEL 6-10 Oseltamivir Phosphate (Tamiflu -) 75 mg PO BID [facility] Stop: 05/04/18 12:44 Last Admin: 05/01/18 10:15 Dose: 75 mg - Objective Vital Signs: Vital Signs Temperature 98.2 F 05/01/18 10:12 Pulse Rate 69 05/01/18 10:12 Respiratory Rate 20 05/01/18 10:12 Blood Pressure 120/66 05/01/18 10:12 O2 Sat by Pulse Oximetry (%) 96 05/01/18 08:18 Constitutional: Yes: Well Nourished, Calm Eyes: Yes: WNL HENT: Yes: WNL Neck: Yes: WNL Cardiovascular: Yes: Regular Rate and Rhythm, S1, S2 Respiratory: Yes: Rhonchi (BILATERAL RHONCHI) Gastrointestinal: Yes: Normal Bowel Sounds, Soft Extremities: Yes: Other (SOFT CAST LEFT ANKLE) Edema: No Labs: CBC, BMP 05/01/18 05:30 05/01/18 05:30 INR, PTT INR 1.09 (0.83-1.09) 04/28/18 17:09 Problem List - Problems (1) Fever Code(s): R50.9 - FEVER, UNSPECIFIED (2) Syncope and collapse Code(s): R55 - SYNCOPE AND COLLAPSE (3) Hepatitis C Code(s): B19.20 - UNSPECIFIED VIRAL HEPATITIS C WITHOUT HEPATIC COMA (4) Hypothyroid Code(s): E03.9 - HYPOTHYROIDISM, UNSPECIFIED Assessment/Plan IMP SYNCOPE LIKELY SECONDARY TO PNEUMONIA BILATERAL PNEUMONIA PNEUMOCOCCAL MVP H/O HEP C HYPOTHYROID LEFT ANKLE FX PLAN O2 NEEDED ABX PER ID INHALED BRONCHODILATORS MEDROL X 24HRS DR GARCIA Problem List - Problems (1) Fever Code(s): R50.9 - FEVER, UNSPECIFIED (2) Syncope and collapse Code(s): R55 - SYNCOPE AND COLLAPSE (3) Hepatitis C Code(s): B19.20 - UNSPECIFIED VIRAL HEPATITIS C WITHOUT HEPATIC COMA (4) Hypothyroid Code(s): E03.9 - HYPOTHYROIDISM, UNSPECIFIED
--- NOTE | 2018-05-01 12:19 | PN ---
Progress Note, Physician - Current Medication List Current Medications: Active Medications Acetaminophen (Tylenol -) 650 mg PO Q6H PRN PRN Reason: FEVER Last Admin: 04/30/18 13:44 Dose: 650 mg Albuterol Sulfate (Ventolin 0.083% Nebulizer Soln -) 1 amp NEB Q4H PRN PRN Reason: SHORT OF BREATH/WHEEZING Albuterol/Ipratropium (Duoneb -) 1 amp NEB RQID [facility] Last Admin: 05/01/18 11:57 Dose: 1 amp Heparin Sodium (Porcine) (Heparin -) 5,000 unit SQ BID [facility] Last Admin: 05/01/18 10:14 Dose: 5,000 unit Ceftriaxone Sodium 1 gm/ (Dextrose) 50 mls @ 100 mls/hr IVPB DAILY [facility]; Protocol Last Admin: 05/01/18 10:14 Dose: 100 mls/hr Levothyroxine Sodium (Synthroid -) 125 mcg PO DAILY@0700 [facility] Last Admin: 05/01/18 06:43 Dose: 125 mcg Morphine Sulfate (Morphine Sulfate) 2 mg IVPUSH Q4H PRN PRN Reason: PAIN LEVEL 6-10 Oseltamivir Phosphate (Tamiflu -) 75 mg PO BID [facility] Stop: 05/04/18 12:44 Last Admin: 05/01/18 10:15 Dose: 75 mg - Objective Vital Signs: Vital Signs Temperature 98.2 F 05/01/18 10:12 Pulse Rate 69 05/01/18 10:12 Respiratory Rate 20 05/01/18 10:12 Blood Pressure 120/66 05/01/18 10:12 O2 Sat by Pulse Oximetry (%) 96 05/01/18 08:18 Cardiovascular: Yes: S1, S2 Respiratory: Yes: Rhonchi Gastrointestinal: Yes: Normal Bowel Sounds, Soft Extremities: Yes: Other (soft cast) Labs: CBC, BMP 05/01/18 05:30 05/01/18 05:30 INR, PTT INR 1.09 (0.83-1.09) 04/28/18 17:09 Problem List - Problems (1) Pneumonia due to Streptococcus pneumoniae Assessment/Plan: -IV ABX -ID AND PULM ON BOARD -FOLLOW UP CXR Code(s): J13 - PNEUMONIA DUE TO STREPTOCOCCUS PNEUMONIAE (2) Ankle fracture Assessment/Plan: ORTHO CONSULT NOTED BOOT PT Code(s): S82.899A - OTH FRACTURE OF UNSP LOWER LEG, INIT FOR CLOS FX (3) Syncope and collapse Assessment/Plan: MAY HAVE JENA DUE TO PNEUMONIA TELE CARIO Code(s): R55 - SYNCOPE AND COLLAPSE
[2018-05-02] MEDS: LEVOTHYROXINE NA 125 MCG TABLET (FP) PO SCH (06:56)
[2018-05-02] MEDS: ALBUTEROL SO4 2.5/IPRATROPIUM 0.5 INH SOL 3 ML VIAL.NEB. NEB SCH ×4 (08:09→20:53)
[2018-05-02] MEDS ORDERED: DEXTROSE 5%-WATER - 50 ML IVPB ONE (09:37)
[2018-05-02] MEDS ORDERED: cefTRIAXone SODIUM 1 GM VIAL ONE (09:37)
--- NOTE | 2018-05-02 10:22 | PN ---
Progress Note, Physician History of Present Illness: PULMONARY ALERT,LESS CONGESTED ,+ COUGH - Current Medication List Current Medications: Active Medications Acetaminophen (Tylenol -) 650 mg PO Q6H PRN PRN Reason: FEVER Last Admin: 04/30/18 13:44 Dose: 650 mg Albuterol Sulfate (Ventolin 0.083% Nebulizer Soln -) 1 amp NEB Q4H PRN PRN Reason: SHORT OF BREATH/WHEEZING Albuterol/Ipratropium (Duoneb -) 1 amp NEB RQID [facility] Last Admin: 05/02/18 08:09 Dose: 1 amp Heparin Sodium (Porcine) (Heparin -) 5,000 unit SQ BID [facility] Last Admin: 05/01/18 21:53 Dose: 5,000 unit Ceftriaxone Sodium 1 gm/ (Dextrose) 50 mls @ 100 mls/hr IVPB DAILY [facility]; Protocol Last Admin: 05/01/18 10:14 Dose: 100 mls/hr Levothyroxine Sodium (Synthroid -) 125 mcg PO DAILY@0700 [facility] Last Admin: 05/02/18 06:56 Dose: 125 mcg Morphine Sulfate (Morphine Sulfate) 2 mg IVPUSH Q4H PRN PRN Reason: PAIN LEVEL 6-10 Oseltamivir Phosphate (Tamiflu -) 75 mg PO BID [facility] Stop: 05/04/18 12:44 Last Admin: 05/01/18 21:53 Dose: 75 mg - Objective Vital Signs: Vital Signs Temperature 97.9 F 05/02/18 05:11 Pulse Rate 61 05/02/18 05:11 Respiratory Rate 18 05/02/18 05:11 Blood Pressure 140/86 05/02/18 05:11 O2 Sat by Pulse Oximetry (%) 96 05/01/18 21:00 Constitutional: Yes: Well Nourished, Calm Eyes: Yes: WNL HENT: Yes: WNL Neck: Yes: WNL Cardiovascular: Yes: Regular Rate and Rhythm, S1, S2 Respiratory: Yes: Rhonchi (KAMAR RHONCHI) Gastrointestinal: Yes: Normal Bowel Sounds, Soft Extremities: Yes: Other (LEFT ANKLE IN SOFT CAST) Edema: No Labs: CBC, BMP 05/01/18 05:30 Problem List - Problems (1) Fever Code(s): R50.9 - FEVER, UNSPECIFIED (2) Syncope and collapse Code(s): R55 - SYNCOPE AND COLLAPSE (3) Hepatitis C Code(s): B19.20 - UNSPECIFIED VIRAL HEPATITIS C WITHOUT HEPATIC COMA (4) Hypothyroid Code(s): E03.9 - HYPOTHYROIDISM, UNSPECIFIED Assessment/Plan IMP SYNCOPE LIKELY SECONDARY TO PNEUMONIA BILATERAL PNEUMONIA PNEUMOCOCCAL MVP H/O HEP C HYPOTHYROID LEFT ANKLE FX PLAN O2 NEEDED ABX PER ID INHALED BRONCHODILATORS MEDROL chest x-ray today pa+lateral DR GARCIA Problem List - Problems (1) Fever Code(s): R50.9 - FEVER, UNSPECIFIED (2) Syncope and collapse Code(s): R55 - SYNCOPE AND COLLAPSE (3) Hepatitis C Code(s): B19.20 - UNSPECIFIED VIRAL HEPATITIS C WITHOUT HEPATIC COMA (4) Hypothyroid Code(s): E03.9 - HYPOTHYROIDISM, UNSPECIFIED
[2018-05-02] MEDS ORDERED: PT OWN MED DRAWER 7, Y5N ONE (10:39)
[2018-05-02] MEDS: OSELTAMIVIR PHOSPHATE 75 MG CAPSULE PO SCH ×2 (10:42→22:04)
[2018-05-02] MEDS: methylPREDNISolone NA SUCC 40 MG/1 ML VIAL IVPUSH SCH ×3 (10:42→22:03)
[2018-05-02] MEDS: CEFTRIAXONE 1 GM in DEXTROSE 5%-WATER - 50 ML IVPB SCH (10:43)
[2018-05-02] MEDS: HEPARIN NA (PORCINE) 5,000 UNITS/ML 1ML VIAL SQ SCH ×2 (10:43→22:03)
--- NOTE | 2018-05-02 12:21 | PN ---
Progress Note, Physician Chief Complaint: patient seen and examined on iv rocephin - Current Medication List Current Medications: Active Medications Acetaminophen (Tylenol -) 650 mg PO Q6H PRN PRN Reason: FEVER Last Admin: 04/30/18 13:44 Dose: 650 mg Albuterol Sulfate (Ventolin 0.083% Nebulizer Soln -) 1 amp NEB Q4H PRN PRN Reason: SHORT OF BREATH/WHEEZING Albuterol/Ipratropium (Duoneb -) 1 amp NEB RQID [facility] Last Admin: 05/02/18 11:08 Dose: 1 amp Heparin Sodium (Porcine) (Heparin -) 5,000 unit SQ BID [facility] Last Admin: 05/02/18 10:43 Dose: 5,000 unit Ceftriaxone Sodium 1 gm/ (Dextrose) 50 mls @ 100 mls/hr IVPB DAILY [facility]; Protocol Last Admin: 05/02/18 10:43 Dose: 100 mls/hr Levothyroxine Sodium (Synthroid -) 125 mcg PO DAILY@0700 [facility] Last Admin: 05/02/18 06:56 Dose: 125 mcg Methylprednisolone Sodium Succinate (Solu-Medrol -) 40 mg IVPUSH Q6H-IV [facility] Last Admin: 05/02/18 10:42 Dose: 40 mg Morphine Sulfate (Morphine Sulfate) 2 mg IVPUSH Q4H PRN PRN Reason: PAIN LEVEL 6-10 Oseltamivir Phosphate (Tamiflu -) 75 mg PO BID [facility] Stop: 05/04/18 12:44 Last Admin: 05/02/18 10:42 Dose: 75 mg - Objective Vital Signs: Vital Signs Temperature 97.9 F 05/02/18 05:11 Pulse Rate 80 05/02/18 10:00 Respiratory Rate 20 05/02/18 10:00 Blood Pressure 120/75 05/02/18 10:00 O2 Sat by Pulse Oximetry (%) 96 05/01/18 21:00 Constitutional: Yes: Calm Cardiovascular: Yes: Regular Rate and Rhythm, S1, S2 Respiratory: Yes: Rhonchi (bilateral) Gastrointestinal: Yes: Normal Bowel Sounds, Soft Extremities: Yes: Other (left ankle in cast) Neurological: Yes: Alert, Oriented Labs: CBC, BMP 05/01/18 05:30 05/01/18 05:30 INR, PTT INR 1.09 (0.83-1.09) 04/28/18 17:09 Problem List - Problems (1) Fever Assessment/Plan: bilateral pna- chest CT pneummococal ag positive on rocephin day 4 of iv abx will continue another day of iv abx and then switch to po abx for another 5 days continue tamiflu for another day then will stop it Code(s): R50.9 - FEVER, UNSPECIFIED (2) Syncope and collapse Assessment/Plan: telemetry carotid doppler mod intimal thickening no significant stenosis echo Ejection fraction 65% hyperdynamic left ventricle cardiology noted - syncopal event most likely secondary to PNA troponin negative b12, level high Code(s): R55 - SYNCOPE AND COLLAPSE (3) Ankle fracture Assessment/Plan: TTWB with crutches and camboot repea xray in one week- FU with ortho as outpatient Code(s): S82.899A - OTH FRACTURE OF UNSP LOWER LEG, INIT FOR CLOS FX (4) Hypothyroid Assessment/Plan: synthroid Code(s): E03.9 - HYPOTHYROIDISM, UNSPECIFIED
--- NOTE | 2018-05-02 12:38 | PN ---
Progress Note, Physician History of Present Illness: OOB IN CHAIR REPORTS COUGH, LESS SPUTUM TEMPS DOWN AFEBRILE NO C/O CHEST PAIN/ DYSPNEA CT SHOWS BIBASILAR INFILTRATES SPUTUM C/S NORMAL NOAH - Current Medication List Current Medications: Active Medications Acetaminophen (Tylenol -) 650 mg PO Q6H PRN PRN Reason: FEVER Last Admin: 04/30/18 13:44 Dose: 650 mg Albuterol Sulfate (Ventolin 0.083% Nebulizer Soln -) 1 amp NEB Q4H PRN PRN Reason: SHORT OF BREATH/WHEEZING Albuterol/Ipratropium (Duoneb -) 1 amp NEB RQID [facility] Last Admin: 05/02/18 11:08 Dose: 1 amp Heparin Sodium (Porcine) (Heparin -) 5,000 unit SQ BID [facility] Last Admin: 05/02/18 10:43 Dose: 5,000 unit Ceftriaxone Sodium 1 gm/ (Dextrose) 50 mls @ 100 mls/hr IVPB DAILY [facility]; Protocol Last Admin: 05/02/18 10:43 Dose: 100 mls/hr Levothyroxine Sodium (Synthroid -) 125 mcg PO DAILY@0700 [facility] Last Admin: 05/02/18 06:56 Dose: 125 mcg Methylprednisolone Sodium Succinate (Solu-Medrol -) 40 mg IVPUSH Q6H-IV [facility] Last Admin: 05/02/18 10:42 Dose: 40 mg Oseltamivir Phosphate (Tamiflu -) 75 mg PO BID [facility] Stop: 05/04/18 12:44 Last Admin: 05/02/18 10:42 Dose: 75 mg - Objective Vital Signs: Vital Signs Temperature 97.9 F 05/02/18 05:11 Pulse Rate 80 05/02/18 10:00 Respiratory Rate 20 05/02/18 10:00 Blood Pressure 120/75 05/02/18 10:00 O2 Sat by Pulse Oximetry (%) 96 05/01/18 21:00 Constitutional: Yes: No Distress Eyes: Yes: Conjunctiva Clear Cardiovascular: Yes: Regular Rate and Rhythm, S1, S2 Respiratory: Yes: Other (FEW CREPITATIONS AT BASES) Gastrointestinal: Yes: Normal Bowel Sounds, Soft. No: Tenderness Extremities: Yes: Other (FOOT SPLINTED) Edema: No Labs: CBC, BMP 05/01/18 05:30 05/01/18 05:30 INR, PTT INR 1.09 (0.83-1.09) 04/28/18 17:09 Assessment/Plan BIBASILAR INFILTRATES + PNEUMOCOCCAL AG L ANKLE FRACTURE CLINICALLY IMPROVED CONTINUE CEFTRIAXONE
[2018-05-03] MEDS: methylPREDNISolone NA SUCC 40 MG/1 ML VIAL IVPUSH SCH ×3 (02:56→21:54)
[2018-05-03] MEDS: LEVOTHYROXINE NA 125 MCG TABLET (FP) PO SCH (06:14)
[2018-05-03] MEDS: ALBUTEROL SO4 2.5/IPRATROPIUM 0.5 INH SOL 3 ML VIAL.NEB. NEB SCH ×4 (08:13→19:30)
[2018-05-03 08:31] LABS: ALBUMIN 3.5 g/dl (3.4-5.0); ALK PHOS 50 U/L (45-117); ANION GAP 8 MMOL/L (8-16); BILIRUBIN,TOTAL 0.4 mg/dL (0.2-1); BLOOD UREA NITROGEN 21 mg/dL (7-18); CALCIUM 8.7 mg/dL (8.5-10.1); CHLORIDE 107 mmol/L (98-107); CO2 25 mmol/L (21-32); CREATININE 0.9 mg/dL (0.55-1.3); GLUCOSE,RANDOM 125 mg/dL (74-106); POTASSIUM 4.6 mmol/L (3.5-5.1); SGOT/AST 28 U/L (15-37); SGPT/ALT 46 U/L (13-61); SODIUM 140 mmol/L (136-145); TOT PROT 7.1 g/dl (6.4-8.2)
[2018-05-03] MEDS ORDERED: cefTRIAXone SODIUM 1 GM VIAL ONE ×2 (08:46→09:12)
[2018-05-03] MEDS ORDERED: DEXTROSE 5%-WATER - 50 ML IVPB ONE ×2 (08:47→09:12)
[2018-05-03] MEDS ORDERED: PT OWN MED DRAWER 7, Y5N ONE (08:48)
--- NOTE | 2018-05-03 08:49 | PN ---
Progress Note, Physician - Current Medication List Current Medications: Active Medications Acetaminophen (Tylenol -) 650 mg PO Q6H PRN PRN Reason: FEVER Last Admin: 04/30/18 13:44 Dose: 650 mg Albuterol Sulfate (Ventolin 0.083% Nebulizer Soln -) 1 amp NEB Q4H PRN PRN Reason: SHORT OF BREATH/WHEEZING Albuterol/Ipratropium (Duoneb -) 1 amp NEB RQID [facility] Last Admin: 05/03/18 08:13 Dose: 1 amp Heparin Sodium (Porcine) (Heparin -) 5,000 unit SQ BID [facility] Last Admin: 05/02/18 22:03 Dose: 5,000 unit Ceftriaxone Sodium 1 gm/ (Dextrose) 50 mls @ 100 mls/hr IVPB DAILY [facility]; Protocol Last Admin: 05/02/18 10:43 Dose: 100 mls/hr Levothyroxine Sodium (Synthroid -) 125 mcg PO DAILY@0700 [facility] Last Admin: 05/03/18 06:14 Dose: 125 mcg Methylprednisolone Sodium Succinate (Solu-Medrol -) 40 mg IVPUSH Q6H-IV [facility] Last Admin: 05/03/18 02:56 Dose: 40 mg Oseltamivir Phosphate (Tamiflu -) 75 mg PO BID [facility] Stop: 05/04/18 12:44 Last Admin: 05/02/18 22:04 Dose: 75 mg - Objective Vital Signs: Vital Signs Temperature 98.2 F 05/03/18 06:18 Pulse Rate 74 05/03/18 06:18 Respiratory Rate 20 05/03/18 06:18 Blood Pressure 144/88 05/03/18 06:18 O2 Sat by Pulse Oximetry (%) 96 05/02/18 21:00 Cardiovascular: Yes: Murmur, S1, S2 Respiratory: Yes: Rhonchi Gastrointestinal: Yes: Normal Bowel Sounds, Soft Labs: CBC, BMP 05/01/18 05:30 05/03/18 07:10 INR, PTT INR 1.09 (0.83-1.09) 04/28/18 17:09 Problem List - Problems (1) Pneumonia due to Streptococcus pneumoniae Assessment/Plan: -IV ABX -ID AND PULM ON BOARD -FOLLOW UP CXR Code(s): J13 - PNEUMONIA DUE TO STREPTOCOCCUS PNEUMONIAE (2) Ankle fracture Assessment/Plan: ORTHO CONSULT NOTED BOOT PT Code(s): S82.899A - OTH FRACTURE OF UNSP LOWER LEG, INIT FOR CLOS FX (3) Syncope and collapse Assessment/Plan: MAY HAVE JENA DUE TO PNEUMONIA TELE CARIO Code(s): R55 - SYNCOPE AND COLLAPSE (4) Murmur Assessment/Plan: cardiology follow up Code(s): R01.1 - CARDIAC MURMUR, UNSPECIFIED Assessment/Plan --DC PLANNING\ WILL D/W ID AND CARDIO
[2018-05-03] MEDS: HEPARIN NA (PORCINE) 5,000 UNITS/ML 1ML VIAL SQ SCH ×2 (09:10→21:54)
[2018-05-03] MEDS: OSELTAMIVIR PHOSPHATE 75 MG CAPSULE PO SCH ×2 (09:10→21:53)
[2018-05-03] MEDS: CEFTRIAXONE 1 GM in DEXTROSE 5%-WATER - 50 ML IVPB SCH (09:13)
--- NOTE | 2018-05-03 11:59 | PN ---
Progress Note (short form) - Note Progress Note: PULMONARY No further fevers. Occasional dry cough. States breathing is improving. Vital Signs Period Temp Pulse Resp BP Sys/Reddy Pulse Ox Last 24 Hr 97.2 F-98.2 F 71-90 2-20 115-151/61-88 94-96 Gen: NAD at rest Heart: RRR Lung: scattered wheezes, rhonchi Abd: soft, nontender Ext: no edema CBC, BMP 05/01/18 05:30 05/03/18 07:10 Active Medications Acetaminophen (Tylenol -) 650 mg PO Q6H PRN PRN Reason: FEVER Last Admin: 04/30/18 13:44 Dose: 650 mg Albuterol Sulfate (Ventolin 0.083% Nebulizer Soln -) 1 amp NEB Q4H PRN PRN Reason: SHORT OF BREATH/WHEEZING Albuterol/Ipratropium (Duoneb -) 1 amp NEB RQID [facility] Last Admin: 05/03/18 11:22 Dose: 1 amp Heparin Sodium (Porcine) (Heparin -) 5,000 unit SQ BID [facility] Last Admin: 05/03/18 09:10 Dose: 5,000 unit Ceftriaxone Sodium 1 gm/ (Dextrose) 50 mls @ 100 mls/hr IVPB DAILY [facility]; Protocol Last Admin: 05/03/18 09:13 Dose: 100 mls/hr Levothyroxine Sodium (Synthroid -) 125 mcg PO DAILY@0700 [facility] Last Admin: 05/03/18 06:14 Dose: 125 mcg Methylprednisolone Sodium Succinate (Solu-Medrol -) 40 mg IVPUSH Q6H-IV [facility] Last Admin: 05/03/18 09:10 Dose: 40 mg Oseltamivir Phosphate (Tamiflu -) 75 mg PO BID [facility] Stop: 05/04/18 12:44 Last Admin: 05/03/18 09:10 Dose: 75 mg A/P Pneumococcal Pneumonia Acute Bronchospasm Left Ankle Fracture Hypothyroidism Mitral Valve Prolapse - continue antibiotics per ID - will decrease medrol to q12h - if continues to improve, can likely change steroids to PO prednisone 40mg daily in AM - inhaled bronchodilators - O2 to keep SpO2 >90% - outpt PFTs - DVT prophylaxis
--- NOTE | 2018-05-03 14:59 | PN ---
Progress Note, Physician Chief Complaint: Asked to see the patient again for loud cardiac murmur. History of Present Illness: 73 year old man with a PMHx of treated HCV and mitral valve prolapse diagnosed years ago admitted 04/28/2018 with fever, cough and syncope. He was seen by Dr. Hsieh for initial cardiac evaluation on 04/29/2018. EKG NSR with normal intervals, normal axis, and NSSTTW changes. Echocardiogram 04/29/18 Normal LV size and hyperkinetic wall motion. EF 65 - 70%, mild MR, Mild TR. Aortic valve reported normal. But the echo was a technically difficult study. Troponin negative. He has been treated for pneumonia with IV ABx. He cough has improved markedly. He reports no chest pain, SOB at rest, dizziness or recurrent syncope. He was found to have loud murmur by Dr. Mosley. He was examined carefully. III/ systolic ejection murmur in aortic position with radiation to right carotid artery, A2 seems reduced and II-III holosystolic murmur in mitral position with some radiation to lateral chest noted. Repeat echo recommended. Hope the quality is better. - Current Medication List Current Medications: Active Medications Acetaminophen (Tylenol -) 650 mg PO Q6H PRN PRN Reason: FEVER Last Admin: 04/30/18 13:44 Dose: 650 mg Albuterol Sulfate (Ventolin 0.083% Nebulizer Soln -) 1 amp NEB Q4H PRN PRN Reason: SHORT OF BREATH/WHEEZING Albuterol/Ipratropium (Duoneb -) 1 amp NEB RQID [facility] Last Admin: 05/03/18 11:22 Dose: 1 amp Heparin Sodium (Porcine) (Heparin -) 5,000 unit SQ BID [facility] Last Admin: 05/03/18 09:10 Dose: 5,000 unit Ceftriaxone Sodium 1 gm/ (Dextrose) 50 mls @ 100 mls/hr IVPB DAILY [facility]; Protocol Last Admin: 05/03/18 09:13 Dose: 100 mls/hr Levothyroxine Sodium (Synthroid -) 125 mcg PO DAILY@0700 [facility] Last Admin: 05/03/18 06:14 Dose: 125 mcg Methylprednisolone Sodium Succinate (Solu-Medrol -) 40 mg IVPUSH Q12H [facility] Oseltamivir Phosphate (Tamiflu -) 75 mg PO BID [facility] Stop: 05/04/18 12:44 Last Admin: 05/03/18 09:10 Dose: 75 mg - Objective Vital Signs: Vital Signs Temperature 97.5 F L 05/03/18 10:00 Pulse Rate 86 05/03/18 14:00 Respiratory Rate 18 05/03/18 10:00 Blood Pressure 135/67 05/03/18 14:00 O2 Sat by Pulse Oximetry (%) 94 L 05/03/18 09:00 General: Well developed. Well nourished. No acute distress. Head: Normocephalic. Atraumatic, Eyes: PERRLA, EOMI. Sclerae anicteric. Conjunctivae clear. Neck: Supple. No JVD. No bruits. Heart: Normal S1, S2: Regular rhythm and rate. III/ systolic ejection murmur in aortic position with radiation to right carotid artery, A2 seems reduced and II-III holosystolic murmur in mitral position with some radiation to lateral chest. No gallop or rub. Lungs: Symmetrical air entry. Coarse BS with rhonchi. No crackles. No wheezing. Abdomen: Soft. Bowel sound positive. Non tender. No masses. Extremities: Left ankle wrapped. No edema. No clubbing or cyanosis. PD 2+, equal bilaterally. Neuro: Intact, no focal findings. AAO X3. Labs: CBC, BMP 05/01/18 05:30 05/03/18 07:10 INR, PTT INR 1.09 (0.83-1.09) 04/28/18 17:09 Assessment/Plan 73 year old man with a PMHx of treated HCV and mitral valve prolapse diagnosed years ago admitted 04/28/2018 with fever, cough and syncope. He was seen by Dr. Hsieh for initial cardiac evaluation on 04/29/2018. EKG NSR with normal intervals, normal axis, and NSSTTW changes. Echocardiogram 04/29/18 Normal LV size and hyperkinetic wall motion. EF 65 - 70%, mild MR, Mild TR. Aortic valve reported normal. But the echo was a technically difficult study. Troponin negative. He has been treated for pneumonia with IV ABx. He cough has improved markedly. He reports no chest pain, SOB at rest, dizziness or recurrent syncope. He was found to have loud murmur by Dr. Mosley. He was examined carefully. III/ systolic ejection murmur in aortic position with radiation to right carotid artery and II-III holosystolic murmur in mitral position with some radiation to lateral chest noted. Repeat echo recommended to rule out aortic stenosis and worsening mitral regurgitation. Hope the quality is better. We will follow the pt after repeat echo.
--- NOTE | 2018-05-03 15:26 | PN ---
Progress Note, Physician History of Present Illness: SEATED IN BED LESS COUGH/ SPUTUM TEMPS DOWN AFEBRILE NO C/O CHEST PAIN/ DYSPNEA CT SHOWS BIBASILAR INFILTRATES SPUTUM C/S NORMAL NOAH - Current Medication List Current Medications: Active Medications Acetaminophen (Tylenol -) 650 mg PO Q6H PRN PRN Reason: FEVER Last Admin: 04/30/18 13:44 Dose: 650 mg Albuterol Sulfate (Ventolin 0.083% Nebulizer Soln -) 1 amp NEB Q4H PRN PRN Reason: SHORT OF BREATH/WHEEZING Albuterol/Ipratropium (Duoneb -) 1 amp NEB RQID [facility] Last Admin: 05/03/18 11:22 Dose: 1 amp Heparin Sodium (Porcine) (Heparin -) 5,000 unit SQ BID [facility] Last Admin: 05/03/18 09:10 Dose: 5,000 unit Ceftriaxone Sodium 1 gm/ (Dextrose) 50 mls @ 100 mls/hr IVPB DAILY [facility]; Protocol Last Admin: 05/03/18 09:13 Dose: 100 mls/hr Levothyroxine Sodium (Synthroid -) 125 mcg PO DAILY@0700 [facility] Last Admin: 05/03/18 06:14 Dose: 125 mcg Methylprednisolone Sodium Succinate (Solu-Medrol -) 40 mg IVPUSH Q12H [facility] Oseltamivir Phosphate (Tamiflu -) 75 mg PO BID [facility] Stop: 05/04/18 12:44 Last Admin: 05/03/18 09:10 Dose: 75 mg - Objective Vital Signs: Vital Signs Temperature 97.5 F L 05/03/18 10:00 Pulse Rate 86 05/03/18 14:00 Respiratory Rate 18 05/03/18 10:00 Blood Pressure 135/67 05/03/18 14:00 O2 Sat by Pulse Oximetry (%) 94 L 05/03/18 09:00 Constitutional: Yes: No Distress Eyes: Yes: Conjunctiva Clear Cardiovascular: Yes: Regular Rate and Rhythm, Murmur, S1, S2 Respiratory: Yes: Rhonchi, Other (+ RHONCHI AT BASES) Gastrointestinal: Yes: Normal Bowel Sounds, Soft. No: Tenderness Edema: No Labs: CBC, BMP 05/01/18 05:30 05/03/18 07:10 INR, PTT INR 1.09 (0.83-1.09) 04/28/18 17:09 Assessment/Plan BIBASILAR INFILTRATES + PNEUMOCOCCAL AG L ANKLE FRACTURE CLINICALLY IMPROVED CONTINUE CEFTRIAXONE
[2018-05-03] MEDS ORDERED: MELATONIN 5 MG TABLETS PO PRN (21:27)
[2018-05-04] MEDS ORDERED: ACETAMINOPHEN 325 MG TABLET (FP) PO PRN (05:16)
[2018-05-04] MEDS ORDERED: oxyCODONE HCL 5 MG TABLET PO PRN (05:16)
[2018-05-04] MEDS: LEVOTHYROXINE NA 125 MCG TABLET (FP) PO SCH (06:00)
[2018-05-04] MEDS: ALBUTEROL SO4 2.5/IPRATROPIUM 0.5 INH SOL 3 ML VIAL.NEB. NEB SCH ×3 (07:45→15:50)
[2018-05-04] MEDS ORDERED: cefTRIAXone SODIUM 1 GM VIAL ONE (09:33)
[2018-05-04] MEDS ORDERED: DEXTROSE 5%-WATER - 50 ML IVPB ONE (09:34)
--- NOTE | 2018-05-04 10:02 | PN ---
Progress Note, Physician - Current Medication List Current Medications: Active Medications Acetaminophen (Tylenol -) 650 mg PO Q6H PRN PRN Reason: FEVER Last Admin: 04/30/18 13:44 Dose: 650 mg Acetaminophen (Tylenol -) 325 mg PO Q6H PRN PRN Reason: PAIN LEVEL 6-10 Albuterol Sulfate (Ventolin 0.083% Nebulizer Soln -) 1 amp NEB Q4H PRN PRN Reason: SHORT OF BREATH/WHEEZING Albuterol/Ipratropium (Duoneb -) 1 amp NEB RQID [facility] Last Admin: 05/04/18 07:45 Dose: 1 amp Heparin Sodium (Porcine) (Heparin -) 5,000 unit SQ BID [facility] Last Admin: 05/03/18 21:54 Dose: 5,000 unit Ceftriaxone Sodium 1 gm/ (Dextrose) 50 mls @ 100 mls/hr IVPB DAILY [facility]; Protocol Last Admin: 05/03/18 09:13 Dose: 100 mls/hr Levothyroxine Sodium (Synthroid -) 125 mcg PO DAILY@0700 [facility] Last Admin: 05/04/18 06:00 Dose: 125 mcg Melatonin (Melatonin) 5 mg PO HS PRN PRN Reason: INSOMNIA Last Admin: 05/03/18 21:53 Dose: 5 mg Methylprednisolone Sodium Succinate (Solu-Medrol -) 40 mg IVPUSH Q12H [facility] Last Admin: 05/03/18 21:54 Dose: 40 mg Oseltamivir Phosphate (Tamiflu -) 75 mg PO BID [facility] Stop: 05/04/18 12:44 Last Admin: 05/03/18 21:53 Dose: 75 mg Oxycodone HCl (Roxicodone -) 5 mg PO Q6H PRN PRN Reason: PAIN LEVEL 6-10 - Objective Vital Signs: Vital Signs Temperature 98.3 F 05/04/18 05:00 Pulse Rate 60 05/04/18 05:00 Respiratory Rate 20 05/04/18 05:00 Blood Pressure 141/78 05/04/18 05:00 O2 Sat by Pulse Oximetry (%) 94 L 05/03/18 21:00 Cardiovascular: Yes: S1, S2 Respiratory: Yes: Rhonchi Gastrointestinal: Yes: Normal Bowel Sounds, Soft Labs: CBC, BMP 05/01/18 05:30 05/03/18 07:10 INR, PTT INR 1.09 (0.83-1.09) 04/28/18 17:09 Problem List - Problems (1) Pneumonia due to Streptococcus pneumoniae Assessment/Plan: -IV ABX -ID AND PULM ON BOARD -FOLLOW UP CXR Code(s): J13 - PNEUMONIA DUE TO STREPTOCOCCUS PNEUMONIAE (2) Ankle fracture Assessment/Plan: ORTHO CONSULT NOTED BOOT PT Code(s): S82.899A - OTH FRACTURE OF UNSP LOWER LEG, INIT FOR CLOS FX (3) Syncope and collapse Assessment/Plan: MAY HAVE JENA DUE TO PNEUMONIA TELE CARIO Code(s): R55 - SYNCOPE AND COLLAPSE (4) Murmur Assessment/Plan: cardiology follow up--REPEAT ECHO Code(s): R01.1 - CARDIAC MURMUR, UNSPECIFIED Assessment/Plan --DC PLANNING\ D/W CARDIO--FOR ECHO
[2018-05-04] MEDS: CEFTRIAXONE 1 GM in DEXTROSE 5%-WATER - 50 ML IVPB SCH (10:10)
[2018-05-04] MEDS: methylPREDNISolone NA SUCC 40 MG/1 ML VIAL IVPUSH SCH (10:11)
[2018-05-04] MEDS: OSELTAMIVIR PHOSPHATE 75 MG CAPSULE PO SCH (10:11)
[2018-05-04] MEDS: HEPARIN NA (PORCINE) 5,000 UNITS/ML 1ML VIAL SQ SCH (10:11)
--- NOTE | 2018-05-04 10:17 | PN ---
Progress Note, Physician History of Present Illness: pulmonary alert,feeling better,less cough - Current Medication List Current Medications: Active Medications Acetaminophen (Tylenol -) 650 mg PO Q6H PRN PRN Reason: FEVER Last Admin: 04/30/18 13:44 Dose: 650 mg Acetaminophen (Tylenol -) 325 mg PO Q6H PRN PRN Reason: PAIN LEVEL 6-10 Albuterol Sulfate (Ventolin 0.083% Nebulizer Soln -) 1 amp NEB Q4H PRN PRN Reason: SHORT OF BREATH/WHEEZING Albuterol/Ipratropium (Duoneb -) 1 amp NEB RQID [facility] Last Admin: 05/04/18 07:45 Dose: 1 amp Heparin Sodium (Porcine) (Heparin -) 5,000 unit SQ BID [facility] Last Admin: 05/04/18 10:11 Dose: 5,000 unit Ceftriaxone Sodium 1 gm/ (Dextrose) 50 mls @ 100 mls/hr IVPB DAILY [facility]; Protocol Last Admin: 05/04/18 10:10 Dose: 100 mls/hr Levothyroxine Sodium (Synthroid -) 125 mcg PO DAILY@0700 [facility] Last Admin: 05/04/18 06:00 Dose: 125 mcg Melatonin (Melatonin) 5 mg PO HS PRN PRN Reason: INSOMNIA Last Admin: 05/03/18 21:53 Dose: 5 mg Methylprednisolone Sodium Succinate (Solu-Medrol -) 40 mg IVPUSH Q12H [facility] Last Admin: 05/04/18 10:11 Dose: 40 mg Oseltamivir Phosphate (Tamiflu -) 75 mg PO BID [facility] Stop: 05/04/18 12:44 Last Admin: 05/04/18 10:11 Dose: Not Given Oxycodone HCl (Roxicodone -) 5 mg PO Q6H PRN PRN Reason: PAIN LEVEL 6-10 - Objective Vital Signs: Vital Signs Temperature 98.3 F 05/04/18 05:00 Pulse Rate 60 05/04/18 05:00 Respiratory Rate 20 05/04/18 05:00 Blood Pressure 141/78 05/04/18 05:00 O2 Sat by Pulse Oximetry (%) 94 L 05/03/18 21:00 Constitutional: Yes: Well Nourished, Calm Eyes: Yes: WNL HENT: Yes: WNL Neck: Yes: WNL Cardiovascular: Yes: Regular Rate and Rhythm, S1, S2 Respiratory: Yes: Rhonchi (scattered derian rhonchi) Gastrointestinal: Yes: Normal Bowel Sounds, Soft Extremities: Yes: Other (left ankle in soft cast) Labs: CBC, BMP 05/01/18 05:30 Problem List - Problems (1) Fever Code(s): R50.9 - FEVER, UNSPECIFIED (2) Syncope and collapse Code(s): R55 - SYNCOPE AND COLLAPSE (3) Hepatitis C Code(s): B19.20 - UNSPECIFIED VIRAL HEPATITIS C WITHOUT HEPATIC COMA (4) Hypothyroid Code(s): E03.9 - HYPOTHYROIDISM, UNSPECIFIED Assessment/Plan IMP SYNCOPE LIKELY SECONDARY TO PNEUMONIA BILATERAL PNEUMONIA PNEUMOCOCCAL MVP H/O HEP C HYPOTHYROID LEFT ANKLE FX PLAN O2 NEEDED ABX PER ID INHALED BRONCHODILATORS prednisone taper DR GARCIA Problem List - Problems (1) Fever Code(s): R50.9 - FEVER, UNSPECIFIED (2) Syncope and collapse Code(s): R55 - SYNCOPE AND COLLAPSE (3) Hepatitis C Code(s): B19.20 - UNSPECIFIED VIRAL HEPATITIS C WITHOUT HEPATIC COMA (4) Hypothyroid Code(s): E03.9 - HYPOTHYROIDISM, UNSPECIFIED
--- NOTE | 2018-05-04 13:13 | ECHO ---
Name: LILLIAN HUANG Exam:Adult Echocardiogram Study Date: 05/04/2018 10:44 AM Age: 73 yrs Reason For Study: giuliana Height: 74 in Weight: 202 lb BSA: 2.2 m2 MMode/2D Measurements & Calculations IVSd: 0.62 cm Ao root diam: 3.8 cm LVIDd: 4.5 cm LA dimension: 3.0 cm LVIDs: 2.7 cm ACS: 2.3 cm LVPWd: 0.87 cm IVSs: 1.3 cm LVPWs: 1.4 cm EDV(Teich): 91.1 ml ESV(Teich): 27.3 ml LVOT diam: 2.0 cm Doppler Measurements & Calculations MV E max river: 64.4 cm/sec Ao V2 max: 115.2 cm/sec MV A max river: 55.3 cm/sec Ao max P.3 mmHg MV E/A: 1.2 Ao V2 mean: 90.1 cm/sec Ao mean P.6 mmHg Ao V2 VTI: 27.9 cm GALA(I,D): 2.9 cm2 GALA(V,D): 2.7 cm2 LV V1 max P.1 mmHg SV(LVOT): 79.5 ml LV V1 mean P.6 mmHg LV V1 max: 100.7 cm/sec LV V1 mean: 78.3 cm/sec LV V1 VTI: 25.7 cm Med [place]: 7.5 cm/sec Med E/e': 8.6 Lat [place]: 9.9 cm/sec Lat E/e': 6.5 Procedure A two-dimensional transthoracic echocardiogram with color flow and Doppler was performed. Left Ventricle The left ventricular size, thickness and function are normal. The left ventricular ejection fraction is normal. Left Ventricular Filling pattern is normal for age. The left ventricular wall motion is armand l. Right Ventricle The right ventricle is normal in size and function. Atria Normal left and right atrial size and function. Mitral Valve There is mild mitral valve thickening. There is no mitral valve stenosis. There is trace to mild mitr al regurgitation. Tricuspid Valve There is mild tricuspid valve thickening. There is no tricuspid stenosis. There was insufficient TR d etected to calculate RV systolic pressure. Aortic Valve The aortic valve is normal in structure and function. No hemodynamically significant valvular aortic stenosis. No aortic regurgitation is present. Pulmonic Valve The pulmonic valve is not well visualized. Great Vessels The aortic root is normal size. Pericardium/Pleura There is a mild pericardial effusion. Interpretation Summary There is a mild pericardial effusion. The left ventricular size, thickness and function are normal The left ventricular ejection fraction is normal. There is trace to mild mitral regurgitation. There was insufficient TR detected to calculate RV systolic pressure. Left Ventricular Filling pattern is normal for age. The left ventricular wall motion is normal. MD Chriss Hathaway 05/04/2018 01:13 PM
--- NOTE | 2018-05-04 15:43 | PN ---
Progress Note, Physician Chief Complaint: The patient appears comfortable at the time of exam. He reports no chest pain, shortness, palpitation or dizziness. History of Present Illness: 73 year old man with a PMHx of treated HCV and mitral valve prolapse diagnosed years ago admitted 04/28/2018 with fever, cough and syncope. He was seen by Dr. Hsieh for initial cardiac evaluation on 04/29/2018. EKG NSR with normal intervals, normal axis, and NSSTTW changes. Echocardiogram 04/29/18 Normal LV size and hyperkinetic wall motion. EF 65 - 70%, mild MR, Mild TR. Aortic valve reported normal. But the echo was a technically difficult study. Troponin negative. He has been treated for pneumonia with IV ABx. He cough has improved markedly. He reports no chest pain, SOB at rest, dizziness or recurrent syncope. He was found to have loud murmur by Dr. Mosley. He was examined carefully. III/ systolic ejection murmur in aortic position with radiation to right carotid artery, A2 seems reduced and II-III holosystolic murmur in mitral position with some radiation to lateral chest noted. However, repeat echocardiogram today 05/04 showed similar findings without significant mitral or arotic valvular abnormalities. Small pericardial effusion noted. His significant systolic ejection murmur can not be explained by the echo finding. - Current Medication List Current Medications: Active Medications Acetaminophen (Tylenol -) 650 mg PO Q6H PRN PRN Reason: FEVER Last Admin: 04/30/18 13:44 Dose: 650 mg Acetaminophen (Tylenol -) 325 mg PO Q6H PRN PRN Reason: PAIN LEVEL 6-10 Albuterol Sulfate (Ventolin 0.083% Nebulizer Soln -) 1 amp NEB Q4H PRN PRN Reason: SHORT OF BREATH/WHEEZING Albuterol/Ipratropium (Duoneb -) 1 amp NEB RQID [facility] Last Admin: 05/04/18 11:29 Dose: 1 amp Heparin Sodium (Porcine) (Heparin -) 5,000 unit SQ BID [facility] Last Admin: 05/04/18 10:11 Dose: 5,000 unit Ceftriaxone Sodium 1 gm/ (Dextrose) 50 mls @ 100 mls/hr IVPB DAILY [facility]; Protocol Last Admin: 05/04/18 10:10 Dose: 100 mls/hr Levothyroxine Sodium (Synthroid -) 125 mcg PO DAILY@0700 [facility] Last Admin: 05/04/18 06:00 Dose: 125 mcg Melatonin (Melatonin) 5 mg PO HS PRN PRN Reason: INSOMNIA Last Admin: 05/03/18 21:53 Dose: 5 mg Oxycodone HCl (Roxicodone -) 5 mg PO Q6H PRN PRN Reason: PAIN LEVEL 6-10 Prednisone (Deltasone -) 20 mg PO BID [facility] - Objective Vital Signs: Vital Signs Temperature 97.2 F L 05/04/18 10:00 Pulse Rate 93 H 05/04/18 10:00 Respiratory Rate 18 05/04/18 10:00 Blood Pressure 148/85 05/04/18 10:00 O2 Sat by Pulse Oximetry (%) 97 05/04/18 09:00 General: Well developed. Well nourished. No acute distress. Head: Normocephalic. Atraumatic, Eyes: PERRLA, EOMI. Sclerae anicteric. Conjunctivae clear. Neck: Supple. No JVD. No bruits. Heart: Normal S1, S2: Regular rhythm and rate. III/ systolic ejection murmur in aortic position with radiation to right carotid artery, A2 seems reduced and II-III holosystolic murmur in mitral position with some radiation to lateral chest. No gallop or rub. Lungs: Symmetrical air entry. Clear to auscultation. No crackles. No wheezing or rhonchi. Abdomen: Soft. Bowel sound positive. Non tender. No masses. Extremities: No edema. No clubbing or cyanosis. PD 2+, equal bilaterally. Neuro: Intact, no focal findings. AAO X3. Labs: CBC, BMP 05/01/18 05:30 05/03/18 07:10 INR, PTT INR 1.09 (0.83-1.09) 04/28/18 17:09 Assessment/Plan 73 year old man with a PMHx of treated HCV and mitral valve prolapse diagnosed years ago admitted 04/28/2018 with fever, cough and syncope. He was seen by Dr. Hsieh for initial cardiac evaluation on 04/29/2018. EKG NSR with normal intervals, normal axis, and NSSTTW changes. Echocardiogram 04/29/18 Normal LV size and hyperkinetic wall motion. EF 65 - 70%, mild MR, Mild TR. Aortic valve reported normal. But the echo was a technically difficult study. Troponin negative. He has been treated for pneumonia with IV ABx. He cough has improved markedly. He reports no chest pain, SOB at rest, dizziness or recurrent syncope. He was found to have loud murmur by Dr. Mosley. He was examined carefully. III/ systolic ejection murmur in aortic position with radiation to right carotid artery, A2 seems reduced and II-III holosystolic murmur in mitral position with some radiation to lateral chest noted. However, repeat echocardiogram today 05/04 showed similar findings without significant mitral or arotic valvular abnormalities. Small pericardial effusion noted. His significant systolic ejection murmur can not be explained by the echo finding. Would repeat echocardiogram in our office in 3-4 weeks to follow the pericardial effusion. And will look for subaortic membrane, likely the cause of his systolic ejection murmur.
--- NOTE | 2018-05-04 15:55 | PN ---
Progress Note, Physician History of Present Illness: SEATED IN BED LESS COUGH/ SPUTUM TEMPS DOWN AFEBRILE NO C/O CHEST PAIN/ DYSPNEA CT SHOWS BIBASILAR INFILTRATES SPUTUM C/S NORMAL NOAH + PNEUMOCOCCAL AG - Current Medication List Current Medications: Active Medications Acetaminophen (Tylenol -) 650 mg PO Q6H PRN PRN Reason: FEVER Last Admin: 04/30/18 13:44 Dose: 650 mg Acetaminophen (Tylenol -) 325 mg PO Q6H PRN PRN Reason: PAIN LEVEL 6-10 Albuterol Sulfate (Ventolin 0.083% Nebulizer Soln -) 1 amp NEB Q4H PRN PRN Reason: SHORT OF BREATH/WHEEZING Albuterol/Ipratropium (Duoneb -) 1 amp NEB RQID [facility] Last Admin: 05/04/18 11:29 Dose: 1 amp Heparin Sodium (Porcine) (Heparin -) 5,000 unit SQ BID [facility] Last Admin: 05/04/18 10:11 Dose: 5,000 unit Ceftriaxone Sodium 1 gm/ (Dextrose) 50 mls @ 100 mls/hr IVPB DAILY [facility]; Protocol Last Admin: 05/04/18 10:10 Dose: 100 mls/hr Levothyroxine Sodium (Synthroid -) 125 mcg PO DAILY@0700 [facility] Last Admin: 05/04/18 06:00 Dose: 125 mcg Melatonin (Melatonin) 5 mg PO HS PRN PRN Reason: INSOMNIA Last Admin: 05/03/18 21:53 Dose: 5 mg Oxycodone HCl (Roxicodone -) 5 mg PO Q6H PRN PRN Reason: PAIN LEVEL 6-10 Prednisone (Deltasone -) 20 mg PO BID [facility] - Objective Vital Signs: Vital Signs Temperature 97.2 F L 05/04/18 10:00 Pulse Rate 93 H 05/04/18 10:00 Respiratory Rate 18 05/04/18 10:00 Blood Pressure 148/85 05/04/18 10:00 O2 Sat by Pulse Oximetry (%) 97 05/04/18 09:00 Constitutional: Yes: No Distress Cardiovascular: Yes: Regular Rate and Rhythm, Murmur, S1, S2 Respiratory: Yes: Rhonchi Gastrointestinal: Yes: Normal Bowel Sounds, Soft. No: Tenderness Labs: CBC, BMP 05/01/18 05:30 05/03/18 07:10 INR, PTT INR 1.09 (0.83-1.09) 04/28/18 17:09 Assessment/Plan BIBASILAR INFILTRATES + PNEUMOCOCCAL AG L ANKLE FRACTURE CLINICALLY IMPROVED SUBSTITUTE CEFTIN 500MG PO BID X 7D
[2018-05-04 15:57] VITALS: BP 123/75; PULSE 87; TEMP 97.9
[2018-05-04] MEDS ORDERED: predniSONE 20 MG TABLET (UD) PO SCH (22:00)
== END 2018-05-04 18:27 | disposition home or self-care (01) | DRG 562 ==
LOC: JER 15:35 → JERBED 17:15 → J4W 04-29 00:10 → OBSVTOIN 04-29 11:24
PROVIDERS: ADMIT Internal Medicine; ATTEND Family Medicine
DX: S82.52XA Displaced fracture of medial malleolus of left tibia, initial encounter for closed fracture (principal); J13 Pneumonia due to Streptococcus pneumoniae; J98.11 Atelectasis; I31.3 Pericardial effusion (noninflammatory); I34.1 Nonrheumatic mitral (valve) prolapse; S82.435A Nondisplaced oblique fracture of shaft of left fibula, initial encounter for closed fracture; R50.9 Fever, unspecified; E03.9 Hypothyroidism, unspecified; B19.20 Unspecified viral hepatitis C without hepatic coma; R01.1 Cardiac murmur, unspecified; J98.01 Acute bronchospasm; W18.39XA Other fall on same level, initial encounter; Y92.091 Bathroom in other non-institutional residence as the place of occurrence of the external cause
CPT/HCPCS: 36415; 71046-TC-FY; 71250-TC; 73610-TC-LT-FY; 73630-TC-LT; 80048; 80053; 80061; 81003; 82550; 82553; 82607; 82962; 83721; 83735; 84443; 84484; 85025; 85027; 85610; 87040; 87070; 87086; 87205; 87804; 87899; 93005; 93010; 93306-TC; 93880-TC; 94640; 97116-GP; 97162-GP; 99283-25; G0378; J1644; J7030

== ENCOUNTER 2018-08-21 15:00 | Emergency (ER) | payer OTHER, BC ==
[2018-08-21 15:29] VITALS: BP 140/80; PULSE 70; TEMP 98.5; BMI 25.3
--- NOTE | 2018-08-21 16:34 | PDOC ---
Documentation entered by Sarina Anne SCRIBE, acting as scribe for Supriya Moya MD. Supriya Moya MD: This documentation has been prepared by the Omid rehman Xhesika, SCRIBE, under my direction and personally reviewed by me in its entirety. I confirm that the documentation accurately reflects all work, treatment, procedures, and medical decision making performed by me. History of Present Illness - General Chief Complaint: Redness To Affected Area Stated Complaint: TICK BITE RIGHT ANKLE Time Seen by Provider: 08/21/18 15:56 History Source: Patient Exam Limitations: No Limitations - History of Present Illness Initial Comments: 08/21/18 16:01 The patient is a 73 year old male, with a significant PMH of varicose vein, mitral valve prolapse and Hepatitis C, who presents to the emergency department today s/p R ankle tick bite since 08/14/18. Patient reports he was not sure if is was his varicose vein or if it was a tick bite, so he picked at the scab and it started bleeding. The patient states the affected area was red, scabby and looked like a tick was there. it happend one week ago. just finished a course of augmentin today for sinusitis. noted today he was having mild pain around area of the tick bit, was concerned he was exposed to lyme, and concerned for infection. also has h/o phlebitis from varicose veins. was also treated for pneumonia 4 mo ago, was supposed to follow up with outpatient xray. The patient denies history of DVT, chest pain and headaches. Denies fevers, chills, nausea, vomiting, diarrhea and constipation. Denies dysuria, frequency, urgency and hematuria. Allergies: NKA Past surgical history: L ankle surgery PCP: Dr. Glenn Mason 08/21/18 16:36 Past History - Past Medical History Allergies/Adverse Reactions: Allergies Allergy/AdvReac Type Severity Reaction Status Date / Time No Known Allergies Allergy Verified 08/21/18 15:02 Home Medications: Ambulatory Orders Levothyroxine [Synthroid -] 125 mcg PO DAILY 04/28/18 Acetaminophen [Tylenol .Regular Strength -] 325 mg PO Q6H PRN tablet 05/04/18 Ipratropium/Albuterol Sulfate [Combivent Respimat Inhal [place]] 4 gm IH QID #1 aer.w.adap 05/04/18 Prednisone 10 mg PO BID #14 tablet 05/04/18 Amoxicillin/Potassium Clav [Augmentin 875-125 Tablet] 1 each PO BID 08/21/18 Doxycycline Monohydrate [Mondoxyne Nl] 100 mg PO BID #10 capsule 08/21/18 Cardiac Disorders: Yes (mitral valve prolapse) COPD: No Liver Disease: Yes (HEP C) Thyroid Disease: Yes (hypo) Other medical history: LEFT ANKLE FX - Suicide/Smoking/Psychosocial Hx Smoking History: Never smoked Hx Alcohol Use: No Drug/Substance Use Hx: No Review of Systems - Review of Systems Able to Perform ROS?: Yes Comments:: 08/21/18 16:02 GENERAL/CONSTITUTIONAL: No fever or chills. No weakness. HEAD, EYES, EARS, NOSE AND THROAT: No change in vision. No ear pain or discharge. No sore throat. CARDIOVASCULAR: No chest pain or shortness of breath. RESPIRATORY: No cough, wheezing, or hemoptysis. GASTROINTESTINAL: No nausea, vomiting, diarrhea or constipation. GENITOURINARY: No dysuria, frequency, or change in urination. MUSCULOSKELETAL: No joint or muscle swelling or pain. No neck or back pain. SKIN: (+) R ankle tick bite. NEUROLOGIC: No headache, vertigo, loss of consciousness, or change in strength/ sensation. ENDOCRINE: No increased thirst. No abnormal weight change. HEMATOLOGIC/LYMPHATIC: No anemia, easy bleeding, or history of blood clots. ALLERGIC/IMMUNOLOGIC: No hives or skin allergy. *Physical Exam - Vital Signs Last Vital Signs Temp Pulse Resp BP Pulse Ox 98.5 F 70 16 140/80 98 08/21/18 15:02 08/21/18 15:02 08/21/18 15:02 08/21/18 15:02 08/21/18 15:02 - Physical Exam Comments: 08/21/18 16:28 awake alert lungs clear bilat heart rrr no mrg . legs no edema. right lateral ankle, lower calf area with small punctate scab with dried blood 2 x 2 mm. no surrounding erythema. no creptius no visualized tick does have varicose veins. ED Treatment Course - RADIOLOGY Radiology Studies Ordered: Category Date Time Status CHEST PA & LAT [RAD] Stat Radiology 08/21/18 15:57 Taken Medical Decision Making - Medical Decision Making 08/21/18 16:29 pt with concerns for tick bite, recent wound and now swelling pain at site of bite. minimal rednes on exam. will treat with doxycycline 100 mg twice daily x 5 days. no f/c also c/o still persistant cough after having been treated for pneumonia 4 mo ago. lety obtain cxr. lungs clear on my exam. 08/21/18 16:39 pt cxr negative and clear. was treated recently for sinusitis with augmentin which should cover lyme. will add doxycyline for 5 more days to cover lyme, and any underlying developing cellulitis. told to put warm compress and fu with dr dutton. *DC/Admit/Observation/Transfer Diagnosis at time of Disposition: Insect bite, Varicose vein of leg - Discharge Dispostion Disposition: HOME Condition at time of disposition: Improved - Prescriptions Prescriptions: Doxycycline Monohydrate [Mondoxyne Nl] 100 mg PO BID #10 capsule - Referrals Referrals: Glenn Mason MD [Primary Care Provider] - - Patient Instructions Printed Discharge Instructions: Varicose Veins (Alternative Therapy), Protect Yourself from Tickborne Illnesses Additional Instructions: you can take doxycycline 100 mg twice daily x 5 days. you should also follow up with dr Berry call to schedule to be seen in one week. your chest xray today is negative for persistant infection. you can put warm compress on the wound on your leg, and you should apply bacitracin ointment or neosporin twice daily. return for any redness swelling or any concerns. - Post Discharge Activity
== END 2018-08-21 16:46 | disposition home or self-care (01) ==
LOC: FER 15:00
DX: S90.561A Insect bite (nonvenomous), right ankle, initial encounter (principal); W57.XXXA Bitten or stung by nonvenomous insect and other nonvenomous arthropods, initial encounter; Y93.89 Activity, other specified; Y92.89 Other specified places as the place of occurrence of the external cause; B19.20 Unspecified viral hepatitis C without hepatic coma; E03.9 Hypothyroidism, unspecified; I34.1 Nonrheumatic mitral (valve) prolapse
CPT/HCPCS: 71046-TC-FY; 99281-25

== ENCOUNTER 2019-08-14 15:00 | Emergency (ER) | payer OTHER, BC ==
[2019-08-14 15:06] VITALS: BP 158/80; PULSE 81; TEMP 98.8; BMI 25.4
[2019-08-14 16:09] LABS: ALBUMIN 4.2 g/dl (3.4-5.0); BILIRUBIN,TOTAL 1.3 mg/dl (0.2-1); CALCIUM 8.9 mg/dl (8.5-10); TOT PROT 6.9 g/dl (6.4-8.2)
[2019-08-14 16:14] LABS: BASO % 0.7 % (0-2.0); EOS % 1.7 % (0-4.5); HEMOGLOBIN 12.8 GM/dl (11.7-16.9); LYMPH % 13.1 % (8-40); MCH 30.4 pg (25.7-33.7); MCHC 34.6 g/dl (32.0-35.9); MEAN CELL VOLUME 87.7 fl (80-96); MEAN PLT VOLUME 8.2 fl (7.5-11.1); MONO % 7.9 % (3.8-10.2); NEUT % 76.6 % (42.8-82.8); PLATELET COUNT 146 K/MM3 (134-434); RBC 4.22 M/mm3 (4.00-5.60); RDW 11.9 % (11.9-15.9); WHITE BLOOD COUNT 9.4 K/mm3 (4.0-10.8)
== END 2019-08-14 16:35 | disposition home or self-care (01) ==
LOC: FER 15:00
DX: R50.9 Fever, unspecified (principal)
CPT/HCPCS: 36415; 71045-TC-FY; 80053; 85025; 99284-25

== ENCOUNTER 2021-02-10 18:29 | Inpatient (IN) | payer OTHER, BC ==
[2021-02-10 18:59] VITALS: BMI 25.7
[2021-02-10 20:29] LABS: EPITHELIAL CELLS RARE /hpf
[2021-02-10] MEDS ORDERED: ACETAMINOPHEN 500 MG TABLET (FP) PO ONE (20:44)
[2021-02-10] MEDS ORDERED: ACETAMINOPHEN 500 MG TABLET (FP) ONE (20:46)
[2021-02-10 21:07] LABS: ALBUMIN 3.6 g/dl (3.4-5.0); BILIRUBIN,TOTAL 0.5 mg/dl (0.2-1); CALCIUM 8.4 mg/dl (8.5-10); CREATININE 0.9 mg/dl (0.55-1.3); TOT PROT 6.1 g/dl (6.4-8.2)
[2021-02-10 22:23] LABS: BASO % 0.4 % (0-2.0); EOS % 0.3 % (0-4.5); HEMATOCRIT 36.1 % (35.4-49); HEMOGLOBIN 12.7 GM/dL (11.7-16.9); LYMPH % 9.5 % (8-40); MCH 30.9 pg (25.7-33.7); MCHC 35.3 g/dl (32.0-35.9); MEAN CELL VOLUME 87.4 fl (80-96); MEAN PLT VOLUME 8.7 fl (7.5-11.1); MONO % 7.4 % (3.8-10.2); NEUT % 82.4 % (42.8-82.8); PLATELET COUNT 109 10^3/uL (134-434); RBC 4.13 M/mm3 (4.00-5.60); RDW 12.2 % (11.9-15.9); WHITE BLOOD COUNT 3.5 K/mm3 (4.0-10.0)
[2021-02-10 23:27] LABS: ANISOCYTOSIS 0; MACROCYTOSIS 0; PLATELET ESTIMATE DECREASED
[2021-02-10] MEDS ORDERED: guaiFENesin 200 MG/10 ML 10 ML UNIT-DOSE CUPS PO PRN (23:31)
[2021-02-10 23:44] LABS: MAGNESIUM 1.7 mg/dL (1.8-2.4)
[2021-02-11 00:25] VITALS: TEMP 99.3
[2021-02-11] MEDS ORDERED: ACETAMINOPHEN 325 MG TABLET (FP) PO PRN (03:00)
[2021-02-11] MEDS ORDERED: MAGNESIUM SULF 50% (8.12 MEQ/2 ML-1 GM VIAL) IVPB ONE (05:32)
[2021-02-11] MEDS ORDERED: SODIUM CHLORIDE 500 ML IV STA (05:35)
[2021-02-11 06:20] VITALS: BP 123/79; PULSE 73
[2021-02-11] MEDS ORDERED: LEVOTHYROXINE NA 125 MCG TABLET (FP) PO SCH (07:00)
[2021-02-11 07:34] LABS: BASO % 0.3 % (0-2.0); EOS % 0.1 % (0-4.5); HEMATOCRIT 34.9 % (35.4-49); HEMOGLOBIN 12.4 GM/dL (11.7-16.9); LYMPH % 17.5 % (8-40); MCH 31.4 pg (25.7-33.7); MCHC 35.5 g/dl (32.0-35.9); MEAN CELL VOLUME 88.5 fl (80-96); MEAN PLT VOLUME 8.7 fl (7.5-11.1); NEUT % 76.1 % (42.8-82.8); PLATELET COUNT 104 10^3/uL (134-434); RBC 3.95 M/mm3 (4.00-5.60); RDW 12.3 % (11.9-15.9); WHITE BLOOD COUNT 2.8 K/mm3 (4.0-10.0)
[2021-02-11 07:47] LABS: CHLORIDE 99 mmol/L (98-107); SODIUM 135 mmol/L (136-145)
[2021-02-11 07:49] LABS: ANION GAP 8 MMOL/L (8-16); BLOOD UREA NITROGEN 21.4 mg/dL (7-18); CO2 27 mmol/L (21-32); GLUCOSE,RANDOM 97 mg/dL (74-106)
[2021-02-11 07:52] LABS: SGOT/AST 74 U/L (15-37); SGPT/ALT 44 U/L (13-61)
[2021-02-11 07:54] LABS: BILIRUBIN,TOTAL 0.4 mg/dL (0.2-1); TOT PROT 5.9 g/dl (6.4-8.2)
[2021-02-11 07:55] LABS: ALK PHOS 39 U/L (45-117)
[2021-02-11] MEDS ORDERED: ZINC SULFATE 220 MG CAPSULE (FP) PO SCH (10:00)
[2021-02-11] MEDS ORDERED: ENOXAPARIN NA (PORCINE) 40 MG/0.4 ML DISP.SYRIN SQ SCH (10:00)
[2021-02-11] MEDS ORDERED: CHOLECALCIFEROL (VIT D3) 1,000 UNIT (25 MCG) TABLET PO SCH (10:00)
[2021-02-11] MEDS ORDERED: ASCORBIC ACID 500 MG TABLET (FP) PO SCH (10:00)
== END 2021-02-11 10:09 | disposition left against medical advice (07) | DRG 179 ==
LOC: FER 18:29 → FM/S 22:44 → FER 02-11 10:09
PROVIDERS: ADMIT Internal Medicine; ATTEND Internal Medicine
DX: U07.1 COVID-19 (principal); R55 Syncope and collapse; I34.1 Nonrheumatic mitral (valve) prolapse; B19.20 Unspecified viral hepatitis C without hepatic coma; R74.8 Abnormal levels of other serum enzymes; E03.9 Hypothyroidism, unspecified; Z53.29 Procedure and treatment not carried out because of patient's decision for other reasons
CPT/HCPCS: 36415; 70450-TC; 71045-TC-FY; 80053; 81003; 81015; 82550; 82553; 82728; 83615; 83735; 84443; 84484; 85025; 85379; 86140; 87804; 93005; 99285-25; C9803; U0003; U0005